=== PATIENT | female | born 1955 | race Caucasian/White ===

== ENCOUNTER → 2017-07-14 13:36 | Outpatient (CLI) | payer BC, OTHER, SELFPAY ==
--- NOTE | 2017-07-14 | XR_ITS ---
XR chest 2V HISTORY: ITS.REASON: HTN,SMOKER,PRE OP ORDERING PHYSICIAN: Alexy Hawkins MD PATIENT AGE: 62 years COMPARISON: 01/12/2014 FINDINGS: The cardiomediastinal silhouette and pulmonary vascularity are within normal limits. Mild hyperinflation with mild perihilar bronchial thickening which may be seen with smoking related lung disease. No lobar consolidation or collapse. Degenerative change thoracic spine. IMPRESSION: 1. Hyperinflation with bronchial thickening consistent with chronic bronchitis/smoking-related lung disease. No significant change from 01/12/2014 2. Otherwise negative with no acute finding
[2017-07-14 14:42] LABS: Basophils # 0.1 K/mm3 (0-0.2); Basophils % 0.7 % (0.1-2.0); Eosinophils # 0.2 K/mm3 (0.0-0.4); Eosinophils % 2.2 % (0.1-12.0); Hematocrit 45.8 % (37.0-47.0); Hemoglobin 15.1 g/dL (12.2-16.2); Lymphocytes # 2.2 K/mm3 (0.7-4.5); Lymphocytes % 28.9 K/mm3 (10-50); Mean Corpuscular Hemoglobin 31.8 pg (27.0-31.2); Mean Corpuscular Volume 96.5 fl (81-99); Mean Platelet Volume 7.4 fl (7.4-10.4); Monocytes # 0.3 K/mm3 (0.1-1.0); Monocytes % 4.4 % (1.7-9.3); Neutrophils # 4.9 K/mm3 (1.8-7.8); Neutrophils % 63.8 % (37.0-80.0); Platelet Count 284 K/mm3 (142-424); Red Blood Count 4.75 M/mm3 (4.20-5.40); Red Cell Distribution Width 13.3 % (11.5-17.5); White Blood Count 7.7 K/mm3 (4.8-10.8)
[2017-07-14 15:38] LABS: Anion Gap 8.1 mEq/L (5-15); Blood Urea Nitrogen 10 mg/dL (7-18); Carbon Dioxide 31 mmol/L (21.0-32.0); Chloride 104 mmol/L (98-107); Creatinine,Serum 0.87 mg/dL (0.55-1.02); Estimated Glomerular Filt Rate > 60 ml/min (>60); GFR (African American) > 60 ML/MIN (>60); Glucose 100 mg/dL (74-106); Potassium 4.1 mmoL/L (3.5-5.1); Sodium 139 mmol/L (136-145)
== END ==
PROVIDERS: PCP Internal Medicine; Visit Provider Orthopaedic Surgery
DX: M17.11 Unilateral primary osteoarthritis, right knee (principal); Z01.818 Encounter for other preprocedural examination
CPT/HCPCS: 36415; 71046; 80048; 85025; 93005

== ENCOUNTER → 2017-08-26 11:13 | Outpatient (CLI) | payer BC, OTHER, SELFPAY ==
[2017-08-26 11:39] LABS: Basophils % 0.7 % (0.1-2.0); Eosinophils # 0.2 K/mm3 (0.0-0.4); Eosinophils % 3.6 % (0.1-12.0); Hematocrit 48.1 % (37.0-47.0); Hemoglobin 16.3 g/dL (12.2-16.2); Mean Corpuscular HGB Conc 33.8 g/dL (31.8-35.4); Mean Corpuscular Hemoglobin 32.3 pg (27.0-31.2); Mean Corpuscular Volume 95.7 fl (81-99); Monocytes # 0.4 K/mm3 (0.1-1.0); Monocytes % 5.7 % (1.7-9.3); Neutrophils # 3.7 K/mm3 (1.8-7.8); Platelet Count 260 K/mm3 (142-424); Red Blood Count 5.03 M/mm3 (4.20-5.40); Red Cell Distribution Width 12.9 % (11.5-17.5); White Blood Count 6.3 K/mm3 (4.8-10.8)
[2017-08-26 12:11] LABS: Anion Gap 12.8 mEq/L (5-15); Blood Urea Nitrogen 13 mg/dL (7-18); Carbon Dioxide 28 mmol/L (21.0-32.0); Chloride 102 mmol/L (98-107); Creatinine,Serum 0.96 mg/dL (0.55-1.02); Estimated Glomerular Filt Rate 59 ml/min (>60); GFR (African American) 71 ML/MIN (>60); Glucose 110 mg/dL (74-106); Potassium 3.8 mmoL/L (3.5-5.1); Sodium 139 mmol/L (136-145)
== END ==
PROVIDERS: PCP Internal Medicine; Visit Provider Orthopaedic Surgery
DX: Z01.818 Encounter for other preprocedural examination (principal); M17.11 Unilateral primary osteoarthritis, right knee
CPT/HCPCS: 36415; 80048; 85025; 86850

== ENCOUNTER 2017-08-28 06:05 | Inpatient (IN) | payer BC, OTHER, SELFPAY ==
[2017-08-22 15:49] VITALS: BMI 33.8
[2017-08-28] VITALS (27 sets, daily range): BP systolic 102–147; BP diastolic 50–85; PULSE 91–110; RESP 12–21; TEMP 36.4–43; O2SAT 91–98; BMI 34.9
--- NOTE | 2017-08-28 07:10 | P.PN_ITS ---
[facility] Anesthesia Checklist - Patient Identification Patient Identification: Arm Band - Structural Data Admitted From: Home Planned Operative Procedure/s: right tka Consent for Planned Operative Procedure(s) Verified: Yes Verified Documents: Surgical Consent, History and Physical - NPO Status Verified Time NPO: 00:00 - Additional verifications Anesthesia Reactions: No - Airway Assessment C-Spine Mobility Assessed: Yes (mp2) TMJ Mobility Assessed: Yes - Neurological Assessment Level of Consciousness: Awake, Alert - Anesthesia Plan Anesthesia Risk discussed: Yes Anesthesia Plan: Verified ASA Class: II Anesthesia Type: General - Preoperative Comments Pre-Operative Comments: fem/sciatic block [facility] Anesthesia HX I have reviewed the patient's past medical history: Yes Medical History: Reports:: Asthma, Cancer (pseudotumor l eye- radiation) Denies:: Diabetes Mellitus Type 1, Diabetes Mellitus Type 2, MRSA, Seizures Amputation: No Fractures: No *Family Hx:: No significant family history
--- NOTE | 2017-08-28 07:21 | XR_ITS ---
XR knee RT 2V HISTORY: Follow-up knee replacement ITS.REASON: post op ORDERING PHYSICIAN: Alexy Hawkins MD PATIENT AGE: 62 years COMPARISON: 11/01/2013 FINDINGS: Status post total knee arthroplasty with good alignment of the prosthesis. No acute fracture or dislocation. There is moderate amount of postsurgical gas. On the lateral view there is a lucency overlying the distal aspect of the femur at the metaphyseal region possibly related to overlying gas. Consider follow-up exam for confirmation. IMPRESSION: 1. Status post total knee replacement with good alignment. 2. Postsurgical gas. Indeterminate 7 mm lucency overlies the distal femur. Consider follow-up convalescent exam for better evaluation
--- NOTE | 2017-08-28 10:50 | P.PN_ITS ---
[facility] Anesthesia Record Part I Intake, IV Amount: 2,100 Estimated blood loss (mL): 100 Urine output (mL): 300 Blood Pressure: 145/61 SaO2: 91 Pulse Rate: 108 Respiratory Rate: 12 Temperature: 99.1 F Patient is:: Awake, Stable Stable to PACU at:: 10:45
--- NOTE | 2017-08-28 10:50 | HMH.ANESII ---
[facility] Anesthesia Record Part II Discharge Time: 11:15 Destination: floor PACU nurse assessment reviewed?: Yes Patient Condition:: Good Anesthesia Complications:: None
[2017-08-28 12:43] LABS: Appearance,Urine/Cath CLEAR (Clear); Bilirubin,Cath Negative (Negative); Blood, Urine/Cath Negative (Negative); Color,Urine/Cath YELLOW (Yellow); Glucose,Urine/Cath (UA) Negative (Negative); Ketones,Urine/Cath Negative (Negative); Leukocyte Esterase,Cath Negative (Negative); Microscopic,Cath URINE MICROSCOPIC (MICROSCOPIC); Nitrate,Cath Negative (Negative); PH,Urine/Cath 5.5 (5.0-8.5); Protein,Urine/Cath Negative (Negative); Specific Gravity, Urine/Cath 1.015 (1.005-1.030); Urobilinogen,Cath 0.2 EU/dl (0.2)
[2017-08-28 13:30] LABS: Squamous Epithelial Ur./Cath Occasional #/hpf (0-5)
--- NOTE | 2017-08-28 16:20 | HMH.ORTHPN ---
Subjective Date: 08/28/17 Time: 16:20 Principal diagnosis: Knee osteoarthritis, right... Status post TKA Interval history: Postop Visit Patient is awake alert no apparent distress. Denies pain. Pedal pulses intact. Insensate right lower extremity secondary to her block. Postoperative x-rays satisfactory. Dressing clean and dry. No evidence complications. Patient reports she has been up to a chair already. Impression: Status post right total knee arthroplasty this morning Plan--continue mobilization. I have called the nurses requested a place the 2 L per nasal cannula O2 on as ordered. This is to assist with oxygenation of the tissues as the patient is a smoker. Nicotine patch as needed. Continue antibiotics. Physical therapy tomorrow PN: Obj Ex Vital signs: Temp Pulse Resp BP Pulse Ox 98.1 F 95 H 18 111/63 93 L 08/28/17 15:15 08/28/17 15:15 08/28/17 15:15 08/28/17 15:15 08/28/17 15:15 - Urinary Catheter Management Travis Cath placed during this visit: yes Urethral indwelling: Yes Reason for continuing: Surgical procedure (The patient has a catheter as it is ordered by the attending physician) Insertion date: 08/28/17 Insertion time: 07:25
--- NOTE | 2017-08-28 16:29 | HMH.OPNOTE ---
Date of procedure: 08/28/17 Pre-op Diagnosis:: Right knee osteoarthritis Post-op diagnosis:: same Procedure performed:: Right total knee arthroplasty Surgeon:: Alexy Hawkins MD Airport Ramp Agent(s):: Dr. Moreno DISPLAY DECORATOR:: Other Anesthesia: GETA, regional Estimated blood loss (mL): 100 Operative findings:: Diffuse osteoarthritis as noted on x-rays. Bone quality satisfactory. Operative note:: The patient was taken to the operating room and placed in the supine position. The patient had received twice daily applications of Bactroban and had applied Hibiclens daily to the involved knee operative site for the 5 days prior to surgery. After appropriate identification, timeout verification, the involved right knee was prepped and draped in the usual sterile fashion. The entire operative team wore isolation suits. The operative site was sealed with Ioban. Preoperative antibiotics consisting of Ancef were given. A midline incision was made with a #10 blade and the tissue sharply dissected. A medial parapatellar incision was made sharply and electrocautery used to seal blood vessels. The patella was carefully everted and a rongeur used to remove osteophytes. The knee was gently flexed and we observe to ensure no disruption of the patella tendon at its insertion occurred. We remove the anterior portions of the medial and lateral menisci and the majority of the fat pad. The ACL was sacrificed. An entry drill was used to drill the cortex of the femur just medial to the insertion of the PCL and anterior by around 1 cm. This allowed entry into the femoral canal. We irrigated it and then placed the intramedullary alignment guide. We then pinned the distal cutting guide in position for a standard cut. Soft tissue retractors were placed and a [employer] oscillating precision saw used to remove the distal femur. We checked for trueness of the cut and then sized the femur at a size [5] for the [employer] system. We placed to drill holes and at 3? external rotation, checked Whitesides line and the epicondylar axis, and secured the 4-in-1 cutting block. Soft tissue retractors were placed in the anterior cut made followed by the posterior cut and the 2 chamfer cuts. Trueness of cut was confirmed and we placed the extra medullary guide for the tibia. This was placed in the distal aspect of the guide used to center on the distal tibia at approximately the level of the second ray. This alignment was confirmed by the surgeon, the employee relations assistant Surgeon, and even the production clerks supervisor. We measured off the more worn medial tibial plateau for a 3 mm resection. Using soft tissue guides, the oscillating precision saw was again utilized. We measured depth of cut and work to protect the PCL. The tibia was resected and sized at a size [4]. (We incurred tourniquet failure approximately this point in the case. Unknown to us at the time, and later discovered, the Velcro on the tourniquet had detached at the factory applied end, thus allowing failure. We simply deflated the tourniquet at this point and reinflated it prior to cementing.) We removed the posterior aspects of the medial and lateral menisci. We did note that the popliteus tendon had incurred a partial laceration likely from an osteotome as the tibial plateau was resected. Its overall integrity remained stable and no loss of lateral stabilization incurred. We trialed with the appropriate femoral component and the tibia as well. We used the patella clamp and milled for the patella medializing this. The femoral component a bit lateralized to allow patella tracking. We trialed the components and found the patella to track nicely without any tendency to dislocate. There was no lift off of the tibial tray thus indicating the PCL tensioning was appropriate. Knee flexion was to approximately 120 degrees and extension was to approximately 3?. We removed the components and used a [employer] elevator to loosen th
--- NOTE | 2017-08-28 16:59 | P.OP_ITS ---
Date of procedure: 08/28/17 Pre-op Diagnosis:: Right knee osteoarthritis Post-op diagnosis:: same Procedure performed:: Right total knee arthroplasty Surgeon:: Alexy Hawkins MD Software Development Coordinator(s):: Dr. Moreno FIRE SPRINKLER INSTALLER:: Other Anesthesia: GETA, regional Estimated blood loss (mL): 100 Operative findings:: Diffuse osteoarthritis as noted on x-rays. Bone quality satisfactory. Operative note:: The patient was taken to the operating room and placed in the supine position. The patient had received twice daily applications of Bactroban and had applied Hibiclens daily to the involved knee operative site for the 5 days prior to surgery. After appropriate identification, timeout verification, the involved right knee was prepped and draped in the usual sterile fashion. The entire operative team wore isolation suits. The operative site was sealed with Ioban. Preoperative antibiotics consisting of Ancef were given. A midline incision was made with a #10 blade and the tissue sharply dissected. A medial parapatellar incision was made sharply and electrocautery used to seal blood vessels. The patella was carefully everted and a rongeur used to remove osteophytes. The knee was gently flexed and we observe to ensure no disruption of the patella tendon at its insertion occurred. We remove the anterior portions of the medial and lateral menisci and the majority of the fat pad. The ACL was sacrificed. An entry drill was used to drill the cortex of the femur just medial to the insertion of the PCL and anterior by around 1 cm. This allowed entry into the femoral canal. We irrigated it and then placed the intramedullary alignment guide. We then pinned the distal cutting guide in position for a standard cut. Soft tissue retractors were placed and a [employer] oscillating precision saw used to remove the distal femur. We checked for trueness of the cut and then sized the femur at a size [5] for the [employer] system. We placed to drill holes and at 3? external rotation, checked Whitesides line and the epicondylar axis, and secured the 4-in-1 cutting block. Soft tissue retractors were placed in the anterior cut made followed by the posterior cut and the 2 chamfer cuts. Trueness of cut was confirmed and we placed the extra medullary guide for the tibia. This was placed in the distal aspect of the guide used to center on the distal tibia at approximately the level of the second ray. This alignment was confirmed by the surgeon, the stores assistant Surgeon , and even the video production intern. We measured off the more worn medial tibial plateau for a 3 mm resection. Using soft tissue guides, the oscillating precision saw was again utilized. We measured depth of cut and work to protect the PCL. The tibia was resected and sized at a size [4]. (We incurred tourniquet failure approximately this point in the case. Unknown to us at the time, and later discovered, the Velcro on the tourniquet had detached at the factory applied end, thus allowing failure. We simply deflated the tourniquet at this point and reinflated it prior to cementing.) We removed the posterior aspects of the medial and lateral menisci. We did note that the popliteus tendon had incurred a partial laceration likely from an osteotome as the tibial plateau was resected. Its overall integrity remained stable and no loss of lateral stabilization incurred. We trialed with the appropriate femoral component and the tibia as well. We used the patella clamp and milled for the patella medializing this. The femoral component a bit lateralized to allow patella tracking. We trialed the components and found the patella to track nicely without any tendency to dislo
--- NOTE | 2017-08-28 18:02 | PC.NURSE ---
PT IS RESTING IN BED WITH FAMILY IN THE ROOM, PT STATES THE TABLET TESTER PUMP IS CONTROLLING PAIN WELL. PT'S RT HEEL IS ELEVATED ON PILLOWS WITH ICE PACK TO THE KNEE. DRESSING C/D/I. O2 SATURATION IS 95% ON 2 L NC. LUNG SOUNDS CLEAR. PT TOLERATED SITTING UP IN THE CHAIR FOR AN HOUR THIS SHIFT. EATING AND DRINKING WELL. WILL CONTINUE TO MONITOR.
--- NOTE | 2017-08-28 19:12 | PC.NURSE ---
PT HAD A TOTAL OF 8 MG OF MORPHINE T/O THE SHIFT
--- NOTE | 2017-08-28 21:38 | PC.NURSE ---
PT FULL CODE, REPORT FROM ELÍAS
--- NOTE | 2017-08-28 23:15 | PC.NURSE ---
DR CARDOZA CALLED TO CHECK ON PT. UPDATE GIVEN. STATED MAY GIVE PT A 2MG IV MORPHINE BOLUS (BOOST) DOSE X1 IF NEEDED FOR MODERATE BREAKTHROUGH PAIN. ALSO, STATED PT IS ON LOW DOSE MC KAY STITCHER, MAY INCREASE MC KAY STITCHER TO 1MG MORPHINE INSTEAD OF CURRENT 0.5MG DOSE IF REQUIRED. STATED USE NURSING JUDGEMENT. ENCOURAGE 2LNC WHEN NOT ON CPAP. STATES HELPS IN WOUND HEALING PT IS A SMOKER. WILL PASS ON IN REPORT TO FOLLOWING NURSE.
[2017-08-29] VITALS (10 sets, daily range): BP systolic 114–146; BP diastolic 57–70; PULSE 86–101; RESP 18–20; TEMP 36.7–37.1; O2SAT 91–98
--- NOTE | 2017-08-29 00:58 | PC.NURSE ---
PT RESTING, NO C/O PAIN AT THIS TIME. STABLE. WILL CONTINUE TO MONITOR. REPORT TO ONCOMING NURSE.
--- NOTE | 2017-08-29 04:30 | PC.NURSE ---
12 MG CLEARED FROM FISH ROD MAKER PUMP AT THIS TIME.
[2017-08-29 06:49] LABS: Basophils % 0.2 % (0.1-2.0); Eosinophils % 0.3 % (0.1-12.0); Hematocrit 34.6 % (37.0-47.0); Hemoglobin 11.6 g/dL (12.2-16.2); Lymphocytes # 1.8 K/mm3 (0.7-4.5); Lymphocytes % 14.9 K/mm3 (10-50); Mean Corpuscular HGB Conc 33.5 g/dL (31.8-35.4); Mean Corpuscular Hemoglobin 31.5 pg (27.0-31.2); Mean Platelet Volume 7.1 fl (7.4-10.4); Monocytes # 0.9 K/mm3 (0.1-1.0); Monocytes % 7.4 % (1.7-9.3); Neutrophils # 9.5 K/mm3 (1.8-7.8); Neutrophils % 77.3 % (37.0-80.0); Platelet Count 228 K/mm3 (142-424); Red Blood Count 3.68 M/mm3 (4.20-5.40); Red Cell Distribution Width 12.9 % (11.5-17.5); White Blood Count 12.3 K/mm3 (4.8-10.8)
--- NOTE | 2017-08-29 06:54 | PC.NURSE ---
C/O PAIN IN R KNEE AROUND 0330, ADDITIONAL PAIN MEDICATION ADMINISTERED INCLUDING ASSISTANT BASKETBALL COACH. ONE TAB OF NORCO WAS ADMINISTERED FOLLOWING COMPLAINT. PT THEN REQUESTED AN ADDITIONAL NORCO AROUND 30 MIN FOLLOWING ADMINISTRATION OF FIRST TAB, RN ADMINISTERED ADDITIONAL TAB UPON REQUEST. RN INSTRUCTED PT TO NOTIFY STAFF IF PAIN WAS UNRELIEVED. NO REASSESSMENT PT STATED I AM FINE. MY PAIN IS BETTER. ON RN LAST ROUND, PT STATED I AM STARTING TO FEEL ACHY ON MY R KNEE. IT IS NOT TERRIBLE BUT IT'S ENOUGH TO WHERE I CAN'T GO TO SLEEP. RN INCREASED ASSISTANT BASKETBALL COACH DOSE TO 1 MG FROM THE ORIGINAL 0.[address] BRAN'S TELEPHONE ORDER TO PREVIOUS RN. INSTRUCTED PT TO NOTIFY STAFF IF PAIN IS UNRELIEVED. VSS. WILL CONTINUE TO MONITOR.
[2017-08-29 06:56] LABS: Anion Gap 10.8 mEq/L (5-15); Blood Urea Nitrogen 11 mg/dL (7-18); Carbon Dioxide 28 mmol/L (21.0-32.0); Chloride 100 mmol/L (98-107); Creatinine Clearance Estimated 78 mL/min (0-300); Creatinine,Serum 0.86 mg/dL (0.55-1.02); Estimated Glomerular Filt Rate 66 ml/min (>60); GFR (African American) 80 ML/MIN (>60); Glucose 139 mg/dL (74-106); Potassium 3.8 mmoL/L (3.5-5.1); Sodium 135 mmol/L (136-145)
--- NOTE | 2017-08-29 10:48 | HMH.PTEV ---
Physical Therapy Evaluation Rehab PT IP Evaluation Start: 08/28/17 07:30 Freq: ONCE Status: Complete Protocol: Document 08/28/17 17:38 NIKOLAY (Rec: 08/28/17 17:41 [email or web address] [id number]) Subjective/History History History This si the initial Physical Therapy evaluation for vero Adams. Pt had R TKA Subjective Subjective c/o no feeling in RLE 2nd to nerve block Rehab PT IP Eval Objective Appearance Patient Behavior Appropriate Cooperative Patient Orientation Person Place Time Name Age Birthday Day of Month Day of Week Month Year Patient Baseline Difficulty following instructions none Speech Pattern Clear Ambulation Patient Able to Ambulate Yes Ambulation Observation IP General Gait Pattern Observation Antalgic Gait Decrease Weight Bear (R) Ambulation Distance (feet) 2 Ambulation Assistive Device Rolling Walker Balance Ability to Arise Able, uses arms to help Sitting Balance Steady, safe Standing Balance Steady, wide stance Dynamic Sitting Balance Ability Normal Dynamic Standing Balance Ability Poor Transfers Bed Transfer Ability Supervision/Stand by Chair Transfer Ability Moderate x 1 (50% assist) Sit to Stand Bed Transfer Ability Moderate x 1 (50% assist) Sit to Stand Chair Transfer Ability Moderate x 1 (50% assist) ROM RLE PT ROM Status ABN Abnormal ROM Comment SEvere limitiation Rehab PT IP prob,goals,plan Problems Date of Evaluation: 08/28/17 PT IP Problems Transfers Gait Self care Rehab Potential Rehab Potential Good Equipment Needs Assistive Devices Rolling / Wheeled Walker Plan PT Intervention Plan Bed Mobility Transfers Gait Balance Self care Safety Therapeutic Exercise PT Plan Frequency BID Duration LOS Discharge Goals Bed Transfer Ability Supervision/Stand by Sit to Stand Chair Transfer Ability Cont
--- NOTE | 2017-08-29 15:44 | P.CONPHA_ITS ---
[facility] Pharmacy VTE Monitoring - Patient Demographics Admission date: 08/28/17 Report Date: 08/29/17 Time: 15:43 Allergies/Adverse Reactions: Patient Allergies INGREDIENT: NO KNOWN - NO KNOWN DRUG ALLERGY Allergy (Unknown, Uncoded 08/17/17 14:25) Height: 1.57 m Weight: 86.721 kg - VTE Risk Labs: VTE Related Lab Results Hgb 11.6 g/dL (12.2-16.2) L 08/29/17 06:30 Hct 34.6 % (37.0-47.0) L 08/29/17 06:30 Plt Count 228 K/mm3 (142-424) 08/29/17 06:30 BUN 11 mg/dL (7-18) 08/29/17 06:30 Creatinine 0.86 mg/dL (0.55-1.02) 08/29/17 06:30 Estimated Creat Clear 78 mL/min (0-300) 08/29/17 06:30 VTE Score: 4 VTE Risk Level: Low Risk - Prophylaxis VTE Prophylaxis Ordered?: Yes Types of VTE Prophylaxis: IPCS Knee High Location of Applied Device: Bilateral Lower Extremeties
--- NOTE | 2017-08-29 18:00 | P.PN_ITS ---
Subjective Date: 08/29/17 Time: 14:00 Principal diagnosis: Knee osteoarthritis, right... Status post TKA Interval history: Postop day #1 status post right total knee arthroplasty. Vital signs are stable patient is afebrile. Not wearing her oxygen. This is been discussed with nursing staff. Patient states she is in pain last night as her nerve block has worn off. She presses her MARKET RESEARCH ANALYST occasionally but not reliably. Has recently received Lortab 5/325 as well. No ketorolac given yet. Hematocrit 34%. Glucose elevated. Dressing clean and dry. No evidence complications. PN: Obj Ex Vital signs: Temp Pulse Resp BP Pulse Ox 98.0 F 101 H 20 146/65 91 L 08/29/17 16:00 08/29/17 16:00 08/29/17 13:53 08/29/17 16:00 08/29/17 16:00 Narrative: No evidence DVT or other complications at this stage. We will plan on continuing physical therapy with discharge to rehabilitation center possibly Monday or . Plan Travis catheter removal tonight. May use ketorolac as needed for pain as well. I will be out of town until the evening of the . Dr. Moreno has been kind enough to see the patient during my absence. - Urinary Catheter Management Travis Cath placed during this visit: yes Urethral indwelling: Yes Reason for continuing: Decision to DC catheter Insertion date: 08/28/17 Insertion time: 07:25
--- NOTE | 2017-08-29 19:41 | PC.NURSE ---
PATIENT HAS BEEN UP TO THE CHAIR TWICE TODAY. FAMILY AT BEDSIDE. LERNER CATH REMOVED. NO DISTRESS NOTED.
[2017-08-30] VITALS (12 sets, daily range): BP systolic 104–153; BP diastolic 52–73; PULSE 71–106; RESP 18–20; TEMP 36.2–37.2; O2SAT 89–97
--- NOTE | 2017-08-30 04:25 | PC.NURSE ---
Pt has rested well this shift, with mild c/o pain, but relieved by ANESTHESIA TECHNICIAN. Pt has been up to BSC multiple times this shift with sufficient UOP, pt is up x1 assist and gets up well with walker. Ice applied to rt knee, tibial, femoral, and pedal pulses palpable to BLE. Dressing to rt knee CDI, unable to visualize incision, no s/s of infection or compartment syndrome noted. Pt elevate rt leg on pillow per MD order. Tolerating 2L O2 NC. VSS. Lung sounds clear t/o ascultation, pt educated on use of incentive spriometer, states she is using while awake. BS hypoactive in all qauds. No acute distress noted. Will continue to monitor.
--- NOTE | 2017-08-30 06:44 | PC.NURSE ---
42.2 cleared from MACHINE TOOL MECHANIC
--- NOTE | 2017-08-30 07:41 | PC.NURSE ---
report given to oskar savage rn
--- NOTE | 2017-08-30 07:48 | SW/DCPLANNER ---
WENT IN TO SEE THIS PATIENT REGARDING HER DISCHARGE PLANS: PATIENT STATED SHE WANTS TO GO HOME, SHE SAID HER AND MOTHER WILL BE THERE TO CARE FOR HER... SHE EVEN SUGGESTED SHE MIGHT COME BACK TO [facility] FOR OUT PATIENT REHAB SERVICES...I ASKED HER IF SHE THOUGHT SHE WOULD GET IN AN OUT OF A CAR AND SHE DIDN'T THINK SO.. I SUGGESTED HOME HEALTH SINCE SHE IS SO ACTIVE AND WILL DO WELL AT HOME.. I OFFERED TO ENTERTAIN A REHAB FACILITY BUT SHE DECLINED.. WILL WAIT UNTIL DR BRAN COMES IN TO SEE PATIENT AND ALONG WITH THERAPY SUGGESTIONS WE WILL MOVE FORWARD WITH A DISCHARGE PLAN....
--- NOTE | 2017-08-30 11:48 | P.PN_ITS ---
Subjective Date: 08/30/17 Time: 11:00 Principal diagnosis: Knee osteoarthritis, right... Status post TKA Interval history: Patient of Dr. Hawkins seen on the floor as he is out of town. Patient is status post left total knee arthroplasty post op day #2. Patient is sitting up in a chair. Says she is doing well and reports no problems. Patient reports moderate knee pain and says it's well-controlled with medication. Patient still reports some paresthesias in the left foot from the nerve blocks. No history of any nausea or vomiting. No history of any cough, chest pain, shortness of breath or palpitations. Patient is eating and drinking well. Patient says she managed to walk well with the help of physical therapist using a walker. PN: Obj Ex Vital signs: Temp Pulse Resp BP Pulse Ox 97.1 F L 106 H 20 128/62 97 08/30/17 11:40 08/30/17 11:40 08/30/17 11:40 08/30/17 11:40 08/30/17 11:40 Narrative: Intake & Output 08/29/17 08/30/17 08/30/17 19:59 03:59 11:59 Intake Total 480 / 480 2130 / 2130 Output Total 676 / 676 300 / 300 1300 / 1300 Balance -196 / -196 -300 / -300 830 / 830 Weight 191 lb 3 oz Physical exam General appearance: alert, active, awake, no acute distress ENT: normal exam; mucous membranes moist Neck: Soft and supple, trachea midline, full range of movements Cardiovascular: regular rate & rhythm, S1-S2 heard, normal peripheral pulses Respiratory: clear to auscultation, normal breath sounds Abdomen: Soft and nontender, normal bowel sounds Neuro: alert, oriented x 3, manager application II-XII normal as tested, no deficits Psych: normal and appropriate mood/affect; communicates well Extremities: On examination of the right knee, the dressings are clean, dry and intact. I have changed the surgical dressings today and the incision looks clean and dry and healthy. No erythema or discharge noted. Knee range of motion is 10-70? of flexion. Distal pulses are 2+. Capillary refill is brisk. Patient has paresthesias over the right foot from the nerve blocks. Thigh and calf are soft and nontender. Quadriceps mechanism is clinically intact and is actively lalo. Patient is just about able to lift the leg off the chair. - Urinary Catheter Management Travis Cath placed during this visit: yes Urethral indwelling: No Insertion date: 08/28/17 Insertion time: 07:25 Progress Note: A&P (1) S/P total knee arthroplasty Status: Acute Assessment and plan: Status post RIGHT total knee arthroplasty, postoperative day #2, doing well I reviewed the findings and progress with the patient and her . Changed the dressings today and the surgical incision is clean, dry and healthy. Patient continue physical therapy and mobilization with the help of physical therapist. Discontinue IV fluids as eating and drinking well. Discontinue INTER COM INSTALLER and continue oral and IV as needed pain medication. Continue DVT prophylaxis. Care management consult regarding discharge planning. Current Visit: Yes
--- NOTE | 2017-08-30 15:09 | PC.NURSE ---
A&O x3. Lungs clear, bowel sounds active x4. O2 sats in 90's in RA. Pt weaned from O2 due to possibility of being dc'd tomorrow. Pt has been up to the chair and has ambulated in the herrera with use of walker and standby assist from PT. Dressing to RLE is c,d,& i. Distal pulses +2, cap refill <3sec. +1 edema to rle. SUB ACUTE CARE NURSE pump and fluids dc'd per MD order. Pt has tolerated well. Treated x1 w/toradol for pain. No other concerns at this time. Will continue to monitor.
--- NOTE | 2017-08-30 16:27 | SW/DCPLANNER ---
DURING PATIENT CARE PATIENT EXPRESSED SHE WANTS TO GO HOME: WAS AT BEDSIDE AND SAID IF HER INSURANCE WOULD ALLOW HER TO STAY IN THE ACUTE HOSPITAL A DAY OR TWO LONGER THAT WOULD BE GREAT AND IF NOT HOME HEALTH SERVICES WOULD BE GOOD.. THEY LIVE HERE IN [place] AND ONCE SHE IS ABLE TO COME BACK TO THE OUT PATIENT DEPT SHE WOULD [PREFER TO DO THAT ALSO... I BELIEVE SHE IS MOTIVATED TO GET BETTER AND WILL WORK TOWARD DOING SO...HOME HEALTH WILL BE SET UP FOR THIS PATIENT IF ORDERED BY MD...
--- NOTE | 2017-08-30 18:17 | PC.NURSE ---
Care management rounds: discussed pt needs after discharge and pt concerns
--- NOTE | 2017-08-30 18:57 | PC.NURSE ---
report to be given to Danuta Weldon RN
[2017-08-31] VITALS (7 sets, daily range): BP systolic 113–151; BP diastolic 61–80; PULSE 91–114; RESP 18–20; TEMP 36.8–38.2; O2SAT 92–97
--- NOTE | 2017-08-31 05:23 | PC.NURSE ---
Dr Moreno notified of patient increase in temp of 100.7 and no available medication for fever. Per MD order: Acetaminiphen 650mg Q4H PRN for fever Chest x-ray UA Read back and verified with
--- NOTE | 2017-08-31 05:26 | PC.NURSE ---
Pt has rested well this shift with pain being relieved by PRN pain medication. Pt spiked fever during the night (see previous nurse note) (alexis) notified, order PRN tylenol for fever, pt requested pain medication when she spiked a fever, administered 2 tab of lortab, on follow up temp. assessment was 99.4. Pt dressing CDI, no edema, or redness note to knee. Pt ambulates to BR with stand by assist and walker, pt does well. Pt continues to use ice packs to affected knee, elevates on pillow. Pt educated on use of incentive spirometer, states she is not using it like she should, pt educated on benefits of using and states she will try to use it more often. Pulse palpable and strong in BLE. A&Ox3. Diminished lung sounds during auscultation. BS active, denies BM but states she feels like she has the urge and is passing flatus. Tolerating RA. VSS. Family at bedside. No acute distress noted. Will continue to monitor.
--- NOTE | 2017-08-31 07:00 | XR_ITS ---
XR chest portable HISTORY: ITS.REASON: Fever ORDERING PHYSICIAN: Alexy Hawkins MD PATIENT AGE: 62 years COMPARISON: 07/14/2017 FINDINGS: The cardiomediastinal silhouette and pulmonary vascularity are within normal limits. The lungs are clear without infiltrates, suspicious nodules, or pleural effusions. No acute bony abnormalities. IMPRESSION: Negative chest, no acute finding
--- NOTE | 2017-08-31 07:21 | PC.NURSE ---
REPORT GIVEN TO Bear GILL W/C
--- NOTE | 2017-08-31 07:36 | PC.NURSE ---
Report given to Bear savage rn
[2017-08-31 08:29] LABS: Microscopic, Urine URINE MICROSCOPIC (MICROSCOPIC)
[2017-08-31 08:36] LABS: Appearance,Urine CLEAR (Clear); Bilirubin,Urine Negative (Negative); Blood, Urine 1+ (Negative); Color,Urine YELLOW (Yellow); Glucose,Urine (UA) Negative (Negative); Ketones,Urine Negative (Negative); Leukocyte Esterase,Urine Negative (Negative); Nitrate,Urine Negative (Negative); PH,Urine 6.5 (5.0-8.5); Protein,Urine Negative (Negative); Urobilinogen,Urine 0.2 EU/dl (0.2)
[2017-08-31 08:45] LABS: Bacteria,Urine Trace /lpf; RBC,Urine Occasional #/hpf (0-3)
[2017-08-31 10:36] LABS: Basophils % 0.3 % (0.1-2.0); Eosinophils # 0.2 K/mm3 (0.0-0.4); Eosinophils % 2.5 % (0.1-12.0); Hematocrit 33.8 % (37.0-47.0); Hemoglobin 11.4 g/dL (12.2-16.2); Lymphocytes # 1.4 K/mm3 (0.7-4.5); Lymphocytes % 15.5 K/mm3 (10-50); Mean Corpuscular HGB Conc 33.6 g/dL (31.8-35.4); Mean Corpuscular Hemoglobin 32.2 pg (27.0-31.2); Mean Platelet Volume 7.2 fl (7.4-10.4); Monocytes # 0.6 K/mm3 (0.1-1.0); Monocytes % 6.8 % (1.7-9.3); Neutrophils # 6.9 K/mm3 (1.8-7.8); Neutrophils % 74.9 % (37.0-80.0); Platelet Count 234 K/mm3 (142-424); Red Blood Count 3.52 M/mm3 (4.20-5.40); Red Cell Distribution Width 12.8 % (11.5-17.5); White Blood Count 9.2 K/mm3 (4.8-10.8)
--- NOTE | 2017-08-31 11:22 | PC.NURSE ---
Dr Moreno called to ask about pt, requested cbc be ordered.
--- NOTE | 2017-08-31 12:37 | HMH.ORTHPN ---
Subjective Date: 08/31/17 Time: 12:15 Principal diagnosis: Knee osteoarthritis, right... Status post TKA Interval history: Status post RIGHT total knee arthroplasty, postoperative day #3 Patient is sitting up in a chair. Says she is doing well and reports no problems. Patient reports moderate knee pain and says it's well-controlled with medication. She had a temperature spike of 100.5 earlier this morning. Says she is feeling normal now. No history of any nausea or vomiting. No history of any cough, chest pain, shortness of breath or palpitations. Patient is eating and drinking well. Patient says she managed to walk well with the help of physical therapist using a walker. PN: Obj Ex Vital signs: Temp Pulse Resp BP Pulse Ox 99.5 F 99 H 20 128/61 93 L 08/31/17 08:00 08/31/17 09:50 08/31/17 09:50 08/31/17 08:00 08/31/17 09:50 Narrative: Laboratory Results - last 24 hr 08/31/17 06:23: Urine Color Yellow, Urine Appearance Clear, Urine pH 6.5, Ur Specific Levels 1.010, Urine Protein Negative, Urine Glucose (UA) Negative, Urine Ketones Negative, Urine Blood 1+, Urine Nitrate Negative, Urine Bilirubin Negative, Urine Urobilinogen 0.2, Ur Leukocyte Esterase Negative, Urine RBC Occasional, Urine WBC None, Ur Squamous Epith Cells 5-10, Urine Bacteria Trace 08/31/17 10:26: WBC 9.2 D, RBC 3.52 L, Hgb 11.4 L, Hct 33.8 L, MCV 96.0, MCH 32.2 H, MCHC 33.6, RDW 12.8, Plt Count 234, MPV 7.2 L, Neut % (Auto) 74.9, Lymph % (Auto) 15.5, [place] % (Auto) 6.8, Eos % (Auto) 2.5, Baso % (Auto) 0.3, Neut # (Auto) 6.9, Lymph # (Auto) 1.4, [place] # (Auto) 0.6, Eos # (Auto) 0.2, Baso # (Auto) 0.0 Intake & Output 08/31/17 08/31/17 08/31/17 03:59 11:59 19:59 Intake Total 360 / 360 Balance 360 / 360 Intake: Intake, Oral Amount 360 / 360 Other: Number of Unmeasured Voids 1 Physical exam General appearance: alert, active, awake, no acute distress ENT: normal exam; mucous membranes moist Neck: Soft and supple, trachea midline, full range of movements Cardiovascular: regular rate & rhythm, S1-S2 heard, normal peripheral pulses Respiratory: clear to auscultation, normal breath sounds Abdomen: Soft and nontender, normal bowel sounds Neuro: alert, oriented x 3, waterproof bag sewer II-XII normal as tested, no deficits Psych: normal and appropriate mood/affect; communicates well Extremities: On examination of the right knee, the dressings are clean, dry and intact. Mild swelling and tenderness noted over the right knee. No erythema or discharge noted. Knee range of motion is 5-90? of flexion. Distal pulses are 2+. Mild edema of the right foot and ankle noted. Capillary refill is brisk. Sensation is intact to light touch throughout. Thigh and calf are soft and nontender. Quadriceps mechanism is clinically intact and the quadriceps is noted to be actively lalo. Patient is able to lift the leg off the chair. - Urinary Catheter Management Travis Cath placed during this visit: yes Urethral indwelling: No Insertion date: 08/28/17 Insertion time: 07:25 Progress Note: A&P (1) S/P total knee arthroplasty Start date: 08/28/17 Status: Acute Assessment and plan: Status post RIGHT total knee arthroplasty, postoperative day #3, doing well I reviewed the vital signs, labs, input output, medication and discussed with nursing staff. I also reviewed the findings and progress with the patient and her . She spiked temperature earlier in the morning which promptly responded to oral Tylenol. Her white cell count is normal and no evidence of any infective process found. Because of her temperature spike this morning I would like her to stay in the hospital for the next 24 hours for observation. Patient to continue physical therapy and mobilization with the help of physical therapist. Continue oral and IV as needed pain medication and as needed Tylenol. Continue DVT prophylaxis. Likely discharge tomorrow if no
--- NOTE | 2017-08-31 15:25 | PC.NURSE ---
Pt informed IV due to be changed per protocol. Pt states she would prefer to wait until tomorrow due to pending dc. Pt states if IV becomes painful, red, or zamora she will immediately inform staff. IV flushed w/o pain or difficulty. No s/s of infiltration or infection noted at site. Will continue to monitor.
--- NOTE | 2017-08-31 16:24 | PC.NURSE ---
Lungs clear, bowel sounds active x4. Pt has ambulated and the herrera with walker and standby assist from physical therapy. She has been up to the chair for the majority of the shift w/o incident. Treated x2 with prn lortab and toradol for pain of RLE with relief being reported. Family has been at bedside. Pt in good spirits. No complaints verbalized. Will continue to monitor.
--- NOTE | 2017-08-31 18:49 | PC.NURSE ---
Report to be given to Rosalva Chance RN
--- NOTE | 2017-09-01 03:46 | PC.NURSE ---
PATIENT SEEMS TO HAVE RESTED WELL SO FAR THIS SHIFT. SHE HAS C/O PAIN TO RIGHT KNEE X2, STATING THAT IT MAINLY HURTS ONLY WHEN SHE MOVES IT. PT HAS AMBULATED FREQUENTLY WITHIN ROOM AND IN HALLWAY WITH WALKER AND HAS DONE WELL. PATIENT IS CURRENTLY IN BED SLEEPING. NO OTHER PROBLEMS NOTED AT THIS TIME. VSS. WILL CONTINUE TO MONITOR. SAFETY MEASURES IN PLACE, CALL LIGHT IN REACH.
[2017-09-01 04:00] VITALS: BP 115/62; PULSE 94; RESP 18; TEMP 36.7; O2SAT 95
--- NOTE | 2017-09-01 07:12 | PC.NURSE ---
REPORT GIVEN TO Gen ANDERSON W/C
[2017-09-01 07:48] VITALS: BP 118/52; BP 130/58; PULSE 101; RESP 16; TEMP 37; O2SAT 93
--- NOTE | 2017-09-01 11:58 | SW/DCPLANNER ---
PATIENT IS DISCHARGING TO HOME AND WILL BE RETURNING BACK TO [facility] OUT PATIENT DEPT FOR PHYSICAL THERAPY PATIENT WILL HAVE AN APPT PRIOR TO HER DISCHARGE..
--- NOTE | 2017-09-01 13:48 | PC.NURSE ---
Pt has tolerated well this shift, PRN pain medication given PO x1 this shift and was effective. Pt ambulated in room and in herrera with walker and spouse at her side. Pt discharged home with outpatient physical therapy set up to begin on Monday. Pt given all paperwork/education/perscription prior to discharge. IV removed from right AC, catheter intact, pt tolerated well.
--- NOTE | 2017-09-01 14:22 | HMH.DCSUM ---
General - General Admission date: 08/28/17 Discharge date: 09/01/17 HPI HPI: Patient is a 62-year-old female with advanced degenerative joint disease of the right knee who is admitted to the hospital electively following an uncomplicated primary right total knee arthroplasty on 08/28/2017. She has not responded well to conservative options including NSAID, Tylenol, and interarticular injections for her knee osteoarthritis. Total knee arthroplasty is indicated to reduce the risk of falls, improve her pain and mobility and quality of life. The surgical and nonsurgical alternatives were discussed in detail with the patient as well as the risks and benefits of the surgery. Objective Vital signs: Temp Pulse Resp BP Pulse Ox 98.6 F 101 H 16 118/52 93 L 09/01/17 07:48 09/01/17 07:48 09/01/17 07:48 09/01/17 07:48 09/01/17 07:48 no acute distress, obese, cooperative - *Routine HEENT Exam Head: Present: normocephalic, atraumatic Eye: Present: EOMI, PERRL ENT: Present: mucous membranes moist - *Routine Neck Exam Present: supple, full ROM, trachea midline - *Routine Respiratory Exam Present: CTA bilaterally - *Routine Cardiovascular Exam Present: RRR, Normal S1, Normal S2 - *Routine Abdominal Exam Present: soft, normoactive bowel sounds - *Routine Extremities Exam Present: pulses intact, normal capillary refill Comments: On examination of the right knee, the dressings are clean, dry and intact. Mild swelling and tenderness noted over the right knee. No erythema or discharge noted. Knee range of motion is 5-95? of flexion. Distal pulses are 2+. Mild edema of the right foot and ankle noted. Capillary refill is brisk. Sensation is intact to light touch throughout. Thigh and calf are soft and nontender. Quadriceps mechanism is clinically intact and the quadriceps is noted to be actively lalo. Patient is able to actively straight leg raise. - *Routine Skin Exam Present: intact, normal turgor - *Routine Neurological Exam Present: alert, oriented X3, CN II-XII intact, moving all extremities, vision grossly intact, hearing grossly intact, normal speech - Routine Psychiatric Exam Present: normal affect, normal thought process, cooperative, good insight, good judgment Hospital Course Hospital Course: Patient underwent an uncomplicated straightforward primary right total knee arthroplasty on 08/28/2017. Following surgery patient progressed well without any complications. Her postoperative check x-ray was satisfactory with good alignment and fixation of the components. On postoperative day 3 she spiked a 100.7 temperature but appropriate screening revealed no infective focus. She responded well to symptomatic treatment and has been apyrexial for more than 24 hours prior to discharge. She progressed rapidly with physical therapy and was able to mobilize using a walker. At the time of discharge she has regained good quadriceps control and is able to actively straight leg raise. Her pain is well controlled with as needed oral Hydrocodone. The dressings were changed on the second postoperative day and also at the time of discharge and the wound is healthy and healing well. No signs of any erythema, induration or discharge. Patient was started on Aspirin 325 mg daily for DVT for prophylaxis after surgery. Her neurovascular status in both lower extremities is intact. Pedal pulses 2+ bilaterally and fully sensate distally. No clinical evidence of DVT noted. Patient was cleared for discharge by physical therapy. On the day of discharge, the wound is clean and dry. The patient's vital signs have been stable throughout and she is afebrile at the time of discharge. She is being discharged home with outpatient physical therapy. Condition at discharge: improved and stable. Treatments and Procedures: Total knee arthroplasty, right knee; date of surgery 08/28/2017. DS: Diagnosis - Discharge Diagnosis (1) S/P to
== END 2017-09-01 13:51 | disposition home or self-care (01) | DRG 470 ==
PROVIDERS: Orthopaedic Surgery; Admitting Provider Orthopaedic Surgery; Family Provider Internal Medicine; PCP Internal Medicine; Visit Provider Orthopaedic Surgery
PROC: 0SRC0J9 Replacement of Right Knee Joint with Synthetic Substitute, Cemented, Open Approach (ICD-10-PCS; CPT 27447; principal; 2017-08-28 07:30)
DX: M17.11 Unilateral primary osteoarthritis, right knee (principal)
CPT/HCPCS: 27447; 36415; 71045; 73560; 80048; 81001; 85025; 94640; 94760; 94761; 96374; 97116; 97161; 97530; C1713; C1765; C1776; J0131; J2405; J2710

== ENCOUNTER → 2017-09-26 14:22 | Outpatient (CLI) | payer BC, OTHER, SELFPAY ==
--- NOTE | 2017-09-26 14:25 | XR_ITS ---
XR knee RT 2V HISTORY: ITS.REASON: AP and LATERAL views post op RT TKA ORDERING PHYSICIAN: Alexy Hawkins MD PATIENT AGE: 62 years COMPARISON: 08/28/2017 FINDINGS: AP lateral views the right knee show good alignment of the total knee prosthesis. No evidence of complications. IMPRESSION: Good alignment status post total knee arthroplasty
== END ==
PROVIDERS: PCP Internal Medicine; Visit Provider Orthopaedic Surgery
DX: Z96.651 Presence of right artificial knee joint (principal)
CPT/HCPCS: 73560

== ENCOUNTER 2017-09-27 11:00 | Outpatient (RCR) | payer BC, OTHER, SELFPAY ==
--- NOTE | 2017-09-04 15:31 | HMH.PTOPEV ---
Rehab Outpatient Evaluation Rehab OP Evaluation Start: 09/04/17 15:24 Freq: Status: Active Protocol: Document 09/04/17 15:24 CHARLES (Rec: 09/04/17 15:31 CHARLES [id number]) Electronically Signed By Kehinde Reardon, PT 09/04/17 15:24 Outpatient Therapy Subjective History Subjective History Pt presents s/p R TKA on . Pt reports 'I'm doing pretty well I think'. Pt reports some residual swelling , stiffness, pain, and weakness since sx., but is able to tolerate full wt. bearing activities. Chief Complaint Pain Stiff Swelling Weakness Symptom Type Ache Sharp Dull Symptoms Relieved By Rest/Positioning Ice Symptoms Aggravated By Standing Physical Activity Walking Prior Functional Limitations None Current Functional Limitations Housework Standing Squatting Walking Stairs Symptom Description Constant but Variable Level of pain today (0-10) 4 Pain scale - at its best (0-10) 4 Pain scale - at its worst (0-10) 8 Hip/Knee Eval Gait Observation General Gait Pattern Observation Antalgic Gait Assistive Device Assistive Devices Rolling / Wheeled Walker Palpation Tenderness right Knee Palpation Finding Tenderness Knee Palpation Overall Comment 3/4 MMT left Hip Flexion Strength Grade 5 Normal Hip Abduction Strength Grade 4 Good Hip Adduction Strength Grade 4 Good Hip Extension Strength Grade 4 Good Knee Extension Strength Grade 5 Normal Knee Flexion Strength Grade 5 Normal right Hip Flexion Strength Grade 4- Good- Hip Abduction Strength Grade 3+ Fair+ Hip Adduction Strength Grade 3+ Fair+ Hip Extension Strength Grade 3+ Fair+ Knee Extension Strength Grade 4- Good- Knee Flexion Strength Grade 4- Good- ROM left Knee Flexion Active Range of Motion ( 0-108 degrees) right Knee Flexion Active Range of Motion ( 8-80 degrees) Outpatient Therapy Assessment Impairments Problems/Impairmments Palpation Tenderness Impaired Range of Motion I
== END 2017-09-27 11:01 | disposition home or self-care (01) ==
LOC: PT 11:00
PROVIDERS: Family Provider Internal Medicine; PCP Internal Medicine; Visit Provider Orthopaedic Surgery
DX: Z96.651 Presence of right artificial knee joint (principal)
CPT/HCPCS: 97014; 97016; 97110; 97140; G0283

== ENCOUNTER → 2017-11-02 12:50 | Outpatient (CLI) | payer BC, OTHER, SELFPAY ==
--- NOTE | 2017-11-02 12:54 | XR_ITS ---
XR knee RT 2V HISTORY: Follow-up total knee replacement ITS.REASON: S/P RT TKA ORDERING PHYSICIAN: Alexy Hawkins MD PATIENT AGE: 62 years COMPARISON: 09/26/2017 FINDINGS: Status post total knee arthroplasty. There is good alignment. No orthopedic complications apparent. There remains increased density in the suprapatellar region which may be due to knee joint effusion. IMPRESSION: Good alignment status post total knee replacement.
== END ==
PROVIDERS: PCP Internal Medicine; Visit Provider Orthopaedic Surgery
DX: Z96.651 Presence of right artificial knee joint (principal)
CPT/HCPCS: 73560

== ENCOUNTER → 2017-11-06 15:01 | Outpatient (CLI) | payer BC, OTHER, SELFPAY ==
[2017-11-06 15:57] LABS: Basophils # 0.1 K/mm3 (0-0.2); Basophils % 0.5 % (0.1-2.0); Eosinophils # 0.2 K/mm3 (0.0-0.4); Eosinophils % 2.1 % (0.1-12.0); Hematocrit 46.6 % (37.0-47.0); Hemoglobin 15.5 g/dL (12.2-16.2); Lymphocytes # 2.2 K/mm3 (0.7-4.5); Lymphocytes % 25.1 K/mm3 (10-50); Mean Corpuscular HGB Conc 33.2 g/dL (31.8-35.4); Mean Corpuscular Hemoglobin 31.8 pg (27.0-31.2); Mean Corpuscular Volume 95.8 fl (81-99); Mean Platelet Volume 7.1 fl (7.4-10.4); Monocytes # 0.6 K/mm3 (0.1-1.0); Monocytes % 6.5 % (1.7-9.3); Neutrophils # 5.8 K/mm3 (1.8-7.8); Neutrophils % 65.8 % (37.0-80.0); Platelet Count 355 K/mm3 (142-424); Red Blood Count 4.86 M/mm3 (4.20-5.40); Red Cell Distribution Width 13.5 % (11.5-17.5); White Blood Count 8.8 K/mm3 (4.8-10.8)
[2017-11-06 16:54] LABS: Anion Gap 13.9 mEq/L (5-15); Blood Urea Nitrogen 11 mg/dL (7-18); Carbon Dioxide 28 mmol/L (21.0-32.0); Chloride 101 mmol/L (98-107); Creatinine,Serum 0.85 mg/dL (0.55-1.02); Estimated Glomerular Filt Rate 67 ml/min (>60); GFR (African American) 81 ML/MIN (>60); Glucose 132 mg/dL (74-106); Potassium 3.9 mmoL/L (3.5-5.1); Sodium 139 mmol/L (136-145)
== END ==
PROVIDERS: Family Provider Internal Medicine; PCP Internal Medicine; Visit Provider Orthopaedic Surgery
DX: Z01.818 Encounter for other preprocedural examination (principal); T84.82XA Fibrosis due to internal orthopedic prosthetic devices, implants and grafts, initial encounter; M24.661 Ankylosis, right knee
CPT/HCPCS: 36415; 80048; 85025; 93005

== ENCOUNTER 2017-11-07 11:30 | Observation (INO) ==
--- NOTE | 2017-11-07 11:48 | Progress Note ---
[facility] Anesthesia Record Part I Intake, IV Amount: 300 Estimated blood loss (mL): 0 Urine output (mL): 0 Blood Products used (#): none Blood Pressure: 122/65 SaO2: 97 Pulse Rate: 91 Respiratory Rate: 14 Temperature: 97.2 F Patient is:: Awake Stable to PACU at:: 11:40
--- NOTE | 2017-11-07 11:48 | Progress Note ---
[facility] Anesthesia Checklist - Patient Identification Patient Identification: Arm Band, Verbal (Name & ) - Structural Data Admitted From: Home Consent for Planned Operative Procedure(s) Verified: Yes Verified Documents: Surgical Consent, History and Physical - NPO Status Verified Time NPO: 23:00 - Additional verifications Anesthesia Reactions: No - Airway Assessment C-Spine Mobility Assessed: Yes TMJ Mobility Assessed: Yes Dentition: Poor Dentition - Neurological Assessment Level of Consciousness: Awake Hx Seizures: No Numbness or tingling in extremities: No - Anesthesia Plan Anesthesia Risk discussed: Yes Anesthesia Plan: Verified ASA Class: III Anesthesia Type: MAC [facility] Anesthesia HX I have reviewed the patient's past medical history: Yes Medical History: Reports:: Asthma, Gastroesophageal Reflux Disease(GERD), Hyperlipidemia, Hypertension Denies:: Cancer, Diabetes Mellitus Type 1, Diabetes Mellitus Type 2, Internal Pacemaker, MRSA, Seizures Other Medical History: Reports: Arthritis. Denies: Blood Transfusion Reaction Comment: JERRY Laterality Cases: Right: Total Knee Replacement, Bilateral: Tonsillectomy Other Surgeries: Yes: Hysterectomy-Total, Other. No: Pacemaker Amputation: No Fractures: No *Family Hx:: No significant family history
--- NOTE | 2017-11-07 11:49 | Progress Note ---
[facility] Anesthesia Record Part II Discharge Time: 12:10 Destination: Medical Surgical Department PACU nurse assessment reviewed?: Yes Patient Condition:: Good Anesthesia Complications:: None
--- NOTE | 2017-11-08 08:46 | Pharmacy Consult Notes ---
[facility] Pharmacy VTE Monitoring - Patient Demographics Admission date: 11/07/17 Report Date: 11/08/17 Time: 08:46 Allergies/Adverse Reactions: Patient Allergies No Known Allergies Allergy (Verified 11/07/17 12:42) Height: 1.57 m Weight: 87.317 kg - VTE Risk Was VTE Risk Assessment Performed: Yes VTE Score: 4 VTE Risk Level: Low Risk Clinical Trial Participant: No - Prophylaxis VTE Prophylaxis Ordered?: Yes Types of VTE Prophylaxis: IPCS Knee High (post op) Location of Applied Device: Left Leg
--- NOTE | 2017-11-08 09:43 | Discharge Summary ---
General - General Admission date:: 11/07/17 Discharge date: 11/08/17 Objective Vital signs: Temp Pulse Resp BP Pulse Ox 98.4 F 99 H 20 141/77 96 11/08/17 07:42 11/08/17 07:42 11/08/17 07:42 11/08/17 07:42 11/08/17 08:20 Discharge Plan - Patient Discharge Instructions - Follow up Plan Home Medications: Home Medications Medication Instructions Recorded Confirmed Type albuterol sulfate HFA 90 1 puff INHALATION Q6H 08/17/17 11/06/17 History mcg/actuation aerosol inhaler celecoxib 200 mg capsule 200 mg PO DAILY 08/17/17 11/07/17 History citalopram 20 mg tablet 20 mg PO DAILY 08/17/17 11/06/17 History ranitidine 150 mg tablet 150 mg PO BID 08/17/17 11/06/17 History Lisinopril/Hydrochlorothiazide 1 tab PO DAILY 08/31/17 11/07/17 History [Lisinopril-Hctz 20-12.5 mg Tab] Potassium Chloride [K-Tab ER 10 10 meq PO DAILY 08/31/17 11/06/17 History mEq] Aspirin [Aspirin 325mg Tab] 325 mg PO DAILY 11/06/17 11/06/17 History Multivitamin/Iron/Folic Acid 1 each PO DAILY 11/06/17 11/06/17 History [Centrum Complete Multivit Tab] buPROPion HCl [Bupropion Xl] 150 mg PO DAILY 11/07/17 11/07/17 History Prescriptions/Medication Reconciliation: No Action albuterol sulfate HFA 90 mcg/actuation aerosol inhaler 1 puff INHALATION Q6H citalopram 20 mg tablet 20 mg PO DAILY ranitidine 150 mg tablet 150 mg PO BID celecoxib 200 mg capsule 200 mg PO DAILY Lisinopril/Hydrochlorothiazide [Lisinopril-Hctz 20-12.5 mg Tab] 1 tab PO DAILY Potassium Chloride [K-Tab ER 10 mEq] 10 meq PO DAILY Multivitamin/Iron/Folic Acid [Centrum Complete Multivit Tab] 1 each PO DAILY Aspirin [Aspirin 325mg Tab] 325 mg PO DAILY buPROPion HCl [Bupropion Xl] 150 mg PO DAILY
--- NOTE | 2017-11-08 10:01 | Discharge Summary ---
General - General Admission date:: 11/07/17 Discharge date: 11/08/17 Objective Vital signs: Temp Pulse Resp BP Pulse Ox 98.4 F 99 H 20 141/77 96 11/08/17 07:42 11/08/17 07:42 11/08/17 07:42 11/08/17 07:42 11/08/17 08:20 Discharge Plan - Patient Discharge Instructions ACTIVITY: Continue current activity DIET: continue same diet - Follow up Plan Disposition: Home, Self-Fpc Medications: Home Medications Medication Instructions Recorded Confirmed Type albuterol sulfate HFA 90 1 puff INHALATION Q6H 08/17/17 11/06/17 History mcg/actuation aerosol inhaler celecoxib 200 mg capsule 200 mg PO DAILY 08/17/17 11/07/17 History citalopram 20 mg tablet 20 mg PO DAILY 08/17/17 11/06/17 History ranitidine 150 mg tablet 150 mg PO BID 08/17/17 11/06/17 History Lisinopril/Hydrochlorothiazide 1 tab PO DAILY 08/31/17 11/07/17 History [Lisinopril-Hctz 20-12.5 mg Tab] Potassium Chloride [K-Tab ER 10 10 meq PO DAILY 08/31/17 11/06/17 History mEq] Aspirin [Aspirin 325mg Tab] 325 mg PO DAILY 11/06/17 11/06/17 History Multivitamin/Iron/Folic Acid 1 each PO DAILY 11/06/17 11/06/17 History [Centrum Complete Multivit Tab] buPROPion HCl [Bupropion Xl] 150 mg PO DAILY 11/07/17 11/07/17 History Prescriptions/Medication Reconciliation: Continue albuterol sulfate HFA 90 mcg/actuation aerosol inhaler 1 puff INHALATION Q6H citalopram 20 mg tablet 20 mg PO DAILY ranitidine 150 mg tablet 150 mg PO BID celecoxib 200 mg capsule 200 mg PO DAILY Lisinopril/Hydrochlorothiazide [Lisinopril-Hctz 20-12.5 mg Tab] 1 tab PO DAILY Potassium Chloride [K-Tab ER 10 mEq] 10 meq PO DAILY Multivitamin/Iron/Folic Acid [Centrum Complete Multivit Tab] 1 each PO DAILY Aspirin [Aspirin 325mg Tab] 325 mg PO DAILY buPROPion HCl [Bupropion Xl] 150 mg PO DAILY
--- NOTE | 2017-11-10 11:44 | Operative Note ---
Date of procedure: 11/08/17 Pre-op Diagnosis:: Arthrofibrosis right knee Post-op Diagnosis:: Same Procedure performed:: Manipulation under anesthesia, right knee Surgeon:: Alexy Hawkins MD [employer]:: Other Anesthesia: regional Estimated blood loss (mL): 0 Operative findings:: Pre-manipulation range of motion approximately 15 to 75 Operative note:: Patient was taken the operating room and under benefit of a regional anesthetic plus propofol, the right knee range of motion was assessed. We then gently began manipulation under anesthesia, gently flexing and extending the knee for several minutes until we were gaining no further range of motion. Range of motion after manipulation was 7 to 112. Interoperative photographs were taken to document this. The knee was measured with goniometer. Post manipulation, knee stability was excellent. No complications ensued Condition: stable Disposition: PACU Complications:: No complications
== END 2017-11-08 11:30 | disposition home or self-care (01) ==
LOC: 2ND → EDSTATUS 11:30
PROVIDERS: ADMIT Orthopaedic Surgery; ATTEND Orthopaedic Surgery
CPT/HCPCS: 96374; 97110; 97116; 97161; G0378

== ENCOUNTER → 2018-01-06 13:42 | Outpatient (CLI) | payer BC, OTHER, SELFPAY ==
--- NOTE | 2018-01-06 | NVE_ITS ---
Venous Exam Indications: 729.5 Pain in limb. 729.81 Swelling of limb. IMPRESSIONS No evidence of deep or superficial vein thrombosis involving the right lower extremity Right lower extremity venous duplex evaluation. Doppler flow study including spectral analysis, color and snow scale imaging. Location: Vascular laboratory. Patient status: Outpatient. Tables: Venous flow and imaging: + +-------+ + Location Overall Flow properties + +-------+ + Right common femoral Patent Normal phasicity; spontaneous; normal augmentation; compressible + +-------+ + Right saphenofemoral junction Patent Compressible + +-------+ + Right profunda femoral Patent Compressible + +-------+ + Right femoral Patent Normal phasicity; spontaneous; normal augmentation; compressible + +-------+ + Right greater saphenous Patent Normal phasicity; spontaneous; normal augmentation; compressible + +-------+ + Right popliteal Patent Normal phasicity; spontaneous; normal augmentation; compressible + +-------+ + Right posterior tibial Patent Compressible + +-------+ + Right peroneal Patent Compressible + +-------+ + Right gastrocnemius Patent Compressible + +-------+ + Right soleal Patent Compressible + +-------+ + (Report amended ) Electronically signed by: Rudi Cazares [id number]
== END ==
PROVIDERS: Visit Provider Internal Medicine
DX: M79.89 Other specified soft tissue disorders (principal); M79.604 Pain in right leg
CPT/HCPCS: 93971

== ENCOUNTER → 2018-08-02 14:04 | Outpatient (CLI) | payer MEDICARE, BC, OTHER, SELFPAY ==
--- NOTE | 2018-08-02 14:14 | XR_ITS ---
XR tibia fibula LT 2V CLINICAL INDICATION: ITS.REASON: left knee/ leg pain ORDERING PHYSICIAN: Cuba Moreno MD PATIENT AGE: 63 years Comparison: None FINDINGS: There are moderate osteoarthritic changes of the medial compartment with mild osteoarthritic change of the patellofemoral joint and lateral compartment of the knee. Mild cortical thickening involves the proximal tibia medially. This is well-circumscribed and is consistent with muscular insertion as an incidental finding having a similar appearance on the study of 11/01/2013. No acute fracture or dislocation. No lytic or blastic change. The mid and distal aspect of the tib-fib has an unremarkable appearance. IMPRESSION: Osteoarthritis of the knee otherwise negative.
--- NOTE | 2018-08-02 14:14 | XR_ITS ---
XR hip LT 2-3V w/pelvis HISTORY: ITS.REASON: left hip pain/ leg pain ORDERING PHYSICIAN: Cuba Moreno MD PATIENT AGE: 63 years COMPARISON: None FINDINGS: No fracture or dislocation is evident. There are mild osteoarthritic changes of the left hip with slight decrease in the joint space. On the abduction view there is curvilinear calcification along the lateral aspect of the hip consistent with capsular calcification. IMPRESSION: Mild osteoarthritis of the left hip with mild capsular calcification laterally
--- NOTE | 2018-08-02 14:14 | XR_ITS ---
XR knee LT 4V HISTORY: Left knee pain ITS.REASON: LEFT KNEE pain 4 views weightbearing ORDERING PHYSICIAN: Cuba Moreno MD PATIENT AGE: 63 years COMPARISON: None FINDINGS: There are moderate to severe osteoarthritic changes of the medial compartment and patellofemoral joint with mild osteoarthritic change of the lateral compartment of the knee. Mild cortical thickening involves the proximal tibia medially. This is well-circumscribed and is consistent with muscular insertion as an incidental finding having a similar appearance on the study of 11/01/2013. No acute fracture or dislocation. No lytic or blastic change. IMPRESSION: Moderate to severe osteoarthritic changes of the left knee. These have progressed compared to the previous exam
--- NOTE | 2018-08-02 14:35 | XR_ITS ---
XR knee RT 2V HISTORY: Pain ORDERING PHYSICIAN: Cuba Moreno MD PATIENT AGE: 63 years COMPARISON: 11/02/2017 FINDINGS: Status post total knee arthroplasty good alignment and no significant change. No fracture or dislocation. There is some increased density in the suprapatellar region suggesting a small knee joint effusion IMPRESSION: Status post total knee arthroplasty with good alignment and possible knee joint effusion
== END ==
PROVIDERS: PCP Internal Medicine; Visit Provider Orthopaedic Surgery
DX: M25.562 Pain in left knee (principal); M25.552 Pain in left hip; Z96.651 Presence of right artificial knee joint
CPT/HCPCS: 73502; 73560; 73564; 73590

== ENCOUNTER → 2019-02-05 08:32 | Outpatient (CLI) | payer MEDICARE, BC, OTHER, SELFPAY ==
--- NOTE | 2019-02-05 08:39 | XR_ITS ---
XR knee LT 4V HISTORY: Knee pain ITS.REASON: weightbearing/ left knee pain ORDERING PHYSICIAN: Cuba Moreno MD PATIENT AGE: 64 years COMPARISON: 08/02/2018 FINDINGS: There are moderate to severe osteoarthritic changes of the medial compartment and patellofemoral joint similar to the previous exam. There is bony sclerosis at the medial compartment. There is mild varus angulation of the tibia distally. No acute fracture or dislocation. There is a small suprapatellar effusion. IMPRESSION: Moderate to severe osteoarthritis of the left knee not significant changed
--- NOTE | 2019-02-05 08:39 | XR_ITS ---
XR knee RT 2V HISTORY: Follow-up knee replacement ITS.REASON: status post RT tka ORDERING PHYSICIAN: Cuba Moreno MD PATIENT AGE: 64 years COMPARISON: 08/02/2018 FINDINGS: Status post total knee replacement with good alignment and no evidence of orthopedic complications with no significant change. IMPRESSION: Status post total knee replacement, no acute finding
== END ==
PROVIDERS: PCP Internal Medicine; Visit Provider Orthopaedic Surgery
DX: M17.12 Unilateral primary osteoarthritis, left knee; Z96.651 Presence of right artificial knee joint
CPT/HCPCS: 73560; 73564

== ENCOUNTER 2020-01-04 21:12 | Emergency (ER) | payer MEDICARE, OTHER, SELFPAY ==
[2020-01-04 21:26] VITALS: BP 146/73; PULSE 94; RESP 16; TEMP 37.2; O2SAT 97; BMI 35.4
--- NOTE | 2020-01-04 21:33 | CT_ITS ---
Procedure: CT ABDOMEN PELVIS WO CON Patient Age:64Y CLINICAL INDICATION: Hematuria with bilat flank pain Leukocytosis elevated C-reactive protein urinary tract infection COMPARISON: CXR2V XR chest 2V from 07/14/2017 CXR2V XR chest 2V from 11/18/2018 TECHNIQUE: No oral nor IV contrast utilized Helical the axial images obtained with sagittal and coronal reformats. All CT scans at the facility use one or more dose reduction, viz: automated exposure control, ma/kV adjustment per patient size (including targeted exams where dose is matched to indication, i.e. head), or iterative reconstruction technique. FINDINGS: Lower thorax:. Moderate size hiatal hernia over 5.5 cm transverse measurement. Most likely scarring and atelectasis medial aspect of the right lung base. Doubt early infiltrate (axial image 24) 4mm nodular density posterior RLL, axial image 13. Fairly dense for size and may be a small early calcified granuloma. ABDOMEN: Liver: No significant appearing masses. No biliary dilatation. Small 8 mm low-density area at the dome of left lobe of liver- most likely benign features such as small cyst. It does measure measures fluid density Gallbladder: Nondistended. No radio opaque stones. Pancreas: Unremarkable on this noncontrast study. No masses nor the peripancreatic fluid collections. Spleen: . normal size with a few scattered granulomatous calcifications. Adrenals: unremarkable tract Kidneys/ureters:. No urinary tract obstruction. No hydronephrosis.. Only question some periureteral stranding about distal ureters. Left more so than right. Nonspecific could reflect some mild recently passed stone or UTI this is mention by Reji WILLIAMSON preliminary report but I find this very unimpressive Left kidney: Irregular contour lateral left kidney likely reflect old scarring. Tiny less than 1.5 mm pinpoint calculus, mid portion left kidney. Nonobstructive.-barely appreciable coronal image 43 Left kidney is slightly smaller than right kidney. Left kidney measuring 9.1 cm length on the sagittal image vs Right Kidney 11.4 cm length PELVIS:. Mom the the uterus removed. No adnexal masses but no significant free fluid at pelvis or cul-de-sac. Bladder: Diffuse wall thickening may in part reflect its decompressed state in current setting is suspect for cystitis. GI tract ------ Stomach and small bowel bowel: Nondistended. No obvious mass or thickening. Peritoneum: No abnormal fluid collections. No obvious inflammatory changes. No free air. Fat containing inguinal hernias: The right inguinal hernia most evident, most prominent. The left is very small. No inflammation or bowel loops Very small/Tiny fat containing umbilical hernia. Not of significance Lymph nodes: No enlarged lymph nodes apparent. Vasculature: No evidence of abdominal aortic aneurysm. No retroperitoneal hemorrhage evident. Bones: No acute fracture IMPRESSION: 1.Diffuse wall thickening urinary bladder in part reflects its decompressed state, but is suspect for cystitis with current findings 2.. Nonobstructive nephrolithiasis . Also note scarring and decreased size of left kidney compared to right noted Only question very minor, subtle periureteral stranding about distal ureters but reflect UTI or recently passed stone conceivably but very unimpressive 3..Other nonacute observations . Moderate size hiatal hernia . Fat containing right inguinal hernia, with small developing left inguinal hernia as well.-no associated bowel loops nor inflammation . Small 8 mm low-density area dome of left lobe of liver-favor benign feature, suspect hepatic cyst. Dictated by: Bruno Huerta MD 01/05/2020 16:05 Electro
[2020-01-04 21:41] LABS: Microscopic, Urine URINE MICROSCOPIC (MICROSCOPIC)
[2020-01-04 21:47] LABS: Basophils # 0.1 K/mm3 (0-0.2); Basophils % 0.6 % (0.1-2.0); Eosinophils # 0.3 K/mm3 (0.0-0.4); Eosinophils % 2.1 % (0.1-12.0); Hematocrit 44.2 % (37.0-47.0); Hemoglobin 15.7 g/dL (12.2-16.2); Lymphocytes % 22.5 % (10-50); Mean Corpuscular HGB Conc 35.5 g/dL (31.8-35.4); Mean Corpuscular Hemoglobin 33.3 pg (27.0-31.2); Mean Corpuscular Volume 93.8 fl (81-99); Mean Platelet Volume 7.1 fl (7.4-10.4); Monocytes # 0.6 K/mm3 (0.1-1.0); Monocytes % 4.4 % (1.7-9.3); Neutrophils # 9.4 K/mm3 (1.8-7.8); Neutrophils % 70.5 % (37.0-80.0); Platelet Count 292 K/mm3 (142-424); Red Blood Count 4.71 M/mm3 (4.20-5.40); Red Cell Distribution Width 13.9 % (11.5-17.5); White Blood Count 13.3 K/mm3 (4.8-10.8)
[2020-01-04 21:49] LABS: Appearance,Urine TURBID (Clear); Bilirubin,Urine Negative (Negative); Blood, Urine 3+ (Negative); Color,Urine BROWN (Yellow); Glucose,Urine (UA) Negative (Negative); Ketones,Urine Negative (Negative); Leukocyte Esterase,Urine TRACE (Negative); Nitrate,Urine POSITIVE (Negative); PH,Urine 5.5 (5.0-8.5); Protein,Urine 2+ (Negative); Specific Gravity, Urine >= 1.030 (1.005-1.030); Urobilinogen,Urine 0.2 EU/dl (0.2)
[2020-01-04 21:50] LABS: RBC,Urine TNTC #/hpf (0-3)
[2020-01-04 21:59] LABS: Alanine Aminotransferase 15 U/L (12-78); Albumin Level 4.4 g/dl (3.5-5.0); Albumin/Globulin Ratio 1.5 (1.1-1.8); Alkaline Phosphatase 104 U/L (38-126); Aspartate Amino Transferase 22 U/L (14-36); Bilirubin,Total 0.4 mg/dl (0.2-1.3); Blood Urea Nitrogen 17 mg/dl (7-17); Calcium 9.6 mg/dl (8.4-10.2); Carbon Dioxide 32 mmol/L (22.0-30.0); Chloride 100 mmol/L (98-107); Creatinine Clearance Estimated 79 mL/min (50-200); Estimated Glomerular Filt Rate 63 ml/min (>60); GFR (African American) 76 ML/MIN (>60); Glucose 130 mg/dl (74-100); Sodium 137 mmol/L (136-145); Total Protein,Serum 7.4 g/dl (6.3-8.2)
[2020-01-04 22:04] LABS: C-Reactive Protein 4.3 mg/L (0-4)
--- NOTE | 2020-01-04 22:29 | HMH.EDUROGF ---
ED Disposition Clinical Impression: UTI (urinary tract infection) Qualifiers: Urinary tract infection type: site unspecified Hematuria presence: without hematuria Qualified Code(s): N39.0 - Urinary tract infection, site not specified Hematuria Qualifiers: Hematuria type: unspecified type Qualified Code(s): R31.9 - Hematuria, unspecified Disposition: Home, Self-Care Condition on Discharge: Good Instructions: DI for Urinary Tract Infection (UTI) Additional Instructions: use meds and see pcp and dr sexton for follo wup Prescriptions: levoFLOXacin [Levaquin 500mg tab] 500 mg PO DAILY #7 tab Transmission Status: Pending to [id number] Phenazopyridine HCl [Pyridium 200mg Tablet] 200 pow PO TID #6 tab Transmission Status: Pending to [id number] Referrals: Benji Walton [Primary Care Provider] - - Critical Care Critical Care Time: No Attestation: On 01/04/20, the high probability of a clinically significant, sudden or life threatening deterioration of the following system(s) required my full and direct attention, intervention and personal management. The time I documented below is in addition to time spent performing reported procedures but includes the following listed in this critical care notation. Medical Decision Making - Medical Records Medical records reviewed: Yes: I reviewed the patient's medical records. - [place] Inquiry Pt receiving controlled substance: No Vital Signs: 01/04/20 21:26 Temperature 98.9 F Temperature Source Oral Pulse Rate [Right] 94 H Respiratory Rate 16 Blood Pressure [Right Arm] 146/73 H Blood Pressure Mean [Right Arm] 97 Blood Pressure Source [Right Arm] Automatic Cuff Blood Pressure Position [Right Arm] Sitting 02 Sat by Pulse Oximetry 97 Oxygen Delivery Method Room Air - Lab Data Lab results reviewed: Yes: I reviewed the patient's lab results. Lab Results 01/04/20 21:25: Urine Color Brown, Urine Appearance Turbid, Urine pH 5.5, Ur Specific [place] >= 1.030, Urine Protein 2+, Urine Glucose (UA) Negative, Urine Ketones Negative, Urine Blood 3+, Urine Nitrate Positive, Urine Bilirubin Negative, Urine Urobilinogen 0.2, Ur Leukocyte Esterase Trace, Urine RBC Tntc, Urine WBC 10-20, Ur Squamous Epith Cells 5-10 01/04/20 21:40: WBC 13.3 H, RBC 4.71, Hgb 15.7, Hct 44.2, MCV 93.8, MCH 33.3 H, MCHC 35.5 H, RDW 13.9, Plt Count 292, MPV 7.1 L, Neut % (Auto) 70.5, Lymph % (Auto) 22.5, [place] % (Auto) 4.4, Eos % (Auto) 2.1, Baso % (Auto) 0.6, Neut # (Auto) 9.4 H, Lymph # (Auto) 3.0, [place] # (Auto) 0.6, Eos # (Auto) 0.3, Baso # (Auto) 0.1, ESR 16 01/04/20 21:40: Sodium 137, Potassium 4.0, Chloride 100, Carbon Dioxide 32 H, Anion Gap 9.0, BUN 17, Creatinine 0.90, Estimated Creat Clear 79, Estimated GFR 63, Est GFR ( Amer) 76, Glucose 130 H, Calcium 9.6, Total Bilirubin 0.4, AST 22, ALT 15, Alkaline Phosphatase 104, C-Reactive Protein 4.3 H, Total Protein 7.4, Albumin 4.4, Globulin 3.0, Albumin/Globulin Ratio 1.5 Result diagrams: 01/04/20 21:40 01/04/20 21:40 Orders (Tests/Meds): ED MEDICATIONS Generic Name Dose Route Start Last Admin Trade Name Freq PRN Reason Stop Dose Admin Sodium Chloride 1,000 mls @ 999 mls/hr 01/04/20 21:45 01/04/20 22:37 Sod Chlor 0.9% 1000ml Bag IV 01/04/20 22:45 999 mls/hr .Q1H1M LOUIS Administration Ceftriaxone Sodium 1 gm/ 50 mls @ 100 mls/hr 01/04/20 22:45 01/04/20 22:38 Sodium Chloride IV 01/18/20 22:44 100 mls/hr Q24H LOUIS Administration Protocol Phenazopyridine HCl 200 mg 01/04/20 22:38 Pyridium 200mg Tablet PO 01/04/20 22:39 ONCE ONE Discontinued Medications Generic Name Dose Route Start Last Admin Trade Name Freq PRN Reason Stop Dose Admin Ketorolac Tromethamine 30 mg 01/04/20 22:34 01/04/20 22:38 Toradol 30mg/Ml Vial IV 01/04/20 22:35 30 mg ONCE ONE Administration ORDERS Category Date Time Status CT abdomen pelvis wo con Stat Cat Scan 01/04/20 21:33 Take
[2020-01-04 22:32] LABS: Erythrocyte Sedimentation Rate 16 mm/hr (0-30)
[2020-01-04 23:06] VITALS: BP 142/72; PULSE 84; RESP 16; TEMP 37.2; O2SAT 98
== END 2020-01-04 23:08 | disposition home or self-care (01) ==
PROVIDERS: Emergency Provider Emergency Medicine; PCP Internal Medicine
DX: N30.01 Acute cystitis with hematuria (principal); K21.9 Gastro-esophageal reflux disease without esophagitis; E78.5 Hyperlipidemia, unspecified; I10 Essential (primary) hypertension; F17.210 Nicotine dependence, cigarettes, uncomplicated; Z90.09 Acquired absence of other part of head and neck
CPT/HCPCS: 74176; 80053; 81001; 85025; 85651; 86140; 87086; 87088; 87186; 96365; 96367; 96375; 99283

== ENCOUNTER → 2020-03-03 15:33 | Outpatient (CLI) | payer MEDICARE, OTHER, SELFPAY ==
--- NOTE | 2020-03-03 15:39 | XR_ITS ---
PROCEDURE: XR TIBIA FIBULA LT 2V CLINICAL INDICATION: Pain COMPARISON: CR TIBIALT XR tibia fibula LT 2V from 08/02/2018 CR XR KNEE LT 3V from 03/03/2020 FINDINGS: Osteoarthritic changes are present involving the medial compartment of the knee and the patellofemoral joint which are mild to moderate in nature. Minimal osteoarthritic change involves the lateral compartment. The mid distal aspect of the tibia and fibula have an unremarkable appearance. There may be a loose body in the popliteal fossa region at the intercondylar aspect of the distal femur measuring approximately 12 mm IMPRESSION: 1. No acute finding. 2. Osteoarthritic changes of the knee with possible loose intra-articular body at the intercondylar region of the distal femur Dictated by: Rudi Cazares MD 03/03/2020 16:11 Rudi Cazares MD in [place] 03/03/2020 16:11
--- NOTE | 2020-03-03 15:40 | XR_ITS ---
PROCEDURE: XR HAND RT MIN 3V CLINICAL INDICATION: PAIN Chronic pain COMPARISON: CR HANDR3 HAND-RT 3 VIEWS from 03/02/2017 FINDINGS: Osteoarthritic changes are present at the 1st interphalangeal joint, 1st metacarpal-carpal joint, 2nd metacarpophalangeal joint No fracture or dislocation. No lytic or blastic change. Other findings:None. IMPRESSION: Mild osteoarthritic changes Dictated by: Rudi Cazares MD 03/03/2020 16:09 Rudi Cazares MD in [place] 03/03/2020 16:09
== END ==
PROVIDERS: PCP Internal Medicine; Visit Provider Internal Medicine
DX: M25.562 Pain in left knee (principal); M79.641 Pain in right hand; R60.0 Localized edema
CPT/HCPCS: 73130; 73562; 73590

== ENCOUNTER → 2020-04-07 12:54 | Outpatient (CLI) | payer MEDICARE, OTHER, SELFPAY ==
--- NOTE | 2020-04-07 13:01 | XR_ITS ---
PROCEDURE: XR KNEE LT 4V CLINICAL INDICATION: left knee pain COMPARISON: CR KNEELMRT XR knee RT 2V from 11/02/2017 CR KNEELMRT XR knee RT 2V from 08/02/2018 CR [id number] XR knee LT 4V from 08/02/2018 CR XR KNEE LT 3V from 03/03/2020 FINDINGS: There are moderate to severe osteoarthritic changes of the left knee involving the medial compartment and patellofemoral joint with a small suprapatellar effusion. A loose body is present in the popliteal fossa which measures 16 mm. No fracture or dislocation. Other findings:None. IMPRESSION: Moderate to severe osteoarthritic changes of the left knee with knee joint effusion and suspected loose body in the popliteal fossa Dictated by: Rudi Cazares MD 04/07/2020 14:06 Rudi Cazares MD in [place] 04/07/2020 14:06
== END ==
PROVIDERS: PCP Internal Medicine; Visit Provider Orthopaedic Surgery
DX: M17.12 Unilateral primary osteoarthritis, left knee (principal)
CPT/HCPCS: 73564

== ENCOUNTER → 2020-10-09 15:12 | Outpatient (CLI) | payer MEDICARE, OTHER, SELFPAY ==
--- NOTE | 2020-10-09 15:19 | XR_ITS ---
PROCEDURE: XR KNEE LT 3V CLINICAL INDICATION: FALL, LT KNEE PAIN,LT FOOT PAIN COMPARISON: CR KNEELMRT XR knee RT 2V from 08/02/2018 CR [id number] XR knee LT 4V from 08/02/2018 CR XR KNEE LT 3V from 03/03/2020 CR XR KNEE LT 4V from 04/07/2020 FINDINGS: Severe degenerative changes of the right knee joint are noted, worse in the medial compartment with [id number] appearance. Subchondral sclerosis is noted, worse on the right medial compartment. Tricompartmental osteophyte formation mild medial subluxation is noted. Small suprapatellar joint effusion. No acute fractures or dislocations. Visualized soft tissues are unremarkable. IMPRESSION: Degenerative changes of the knee joint, worse in the medial compartment. Dictated by: Rose Moreno 10/09/2020 15:53 Rose Moreno in [place] 10/09/2020 15:53
--- NOTE | 2020-10-09 15:19 | XR_ITS ---
PROCEDURE: XR FOOT LT MIN 3V CLINICAL INDICATION: FALL, LT KNEE PAIN,LT FOOT PAIN COMPARISON: No exams were available for comparison FINDINGS: No fracture or dislocation. No lytic or blastic change. There is normal mineralization. The joint spaces are well-preserved. No significant degenerative/arthritic changes. No erosive changes evident. Other findings:Calcaneal spur is noted. No significant soft tissue abnormality. IMPRESSION: No acute findings. Dictated by: Rose Moreno 10/09/2020 15:51 Rose Moreno in [place] 10/09/2020 15:51
== END ==
PROVIDERS: PCP Internal Medicine; Visit Provider Internal Medicine
DX: M25.562 Pain in left knee (principal); M79.672 Pain in left foot; W19.XXXA Unspecified fall, initial encounter
CPT/HCPCS: 73562; 73630

== ENCOUNTER → 2021-03-19 15:14 | Outpatient (CLI) | payer MEDICARE, OTHER, SELFPAY ==
--- NOTE | 2021-03-19 15:21 | XR_ITS ---
PROCEDURE: XR SHOULDER RT MIN 2V CLINICAL INDICATION: RT SHOULDER PAIN X 2MONTHS COMPARISON: CR SHOU1R [id number] VIEW-RT from 05/30/2013 CR SHOU3R [id number] VIEWS from 06/04/2013 CR SHOU3R [id number] VIEWS from 06/19/2013 CR SHOU3R [id number] VIEWS from 07/25/2013 FINDINGS: There are mild osteoarthritic changes of the AC joint and glenohumeral joint. No fracture or dislocation. No lytic or blastic change. Other findings:None. IMPRESSION: Mild osteoarthritis of the right AC joint and glenohumeral joint Dictated by: Rudi Cazares MD 03/19/2021 15:59 Rudi Cazares MD in [place] 03/19/2021 15:59
== END ==
PROVIDERS: PCP Internal Medicine; Visit Provider Internal Medicine
DX: M25.511 Pain in right shoulder (principal)
CPT/HCPCS: 73030

== ENCOUNTER → 2021-09-07 13:09 | Outpatient (CLI) | payer MEDICARE, OTHER, SELFPAY ==
--- NOTE | 2021-09-07 13:21 | XR_ITS ---
FINAL REPORT CLINICAL HISTORY: left knee pain COMPARISON: 10/09/2020 FINDINGS: LEFT KNEE Four views demonstrate no acute fracture or dislocation. There are degenerative changes in the medial compartment, progressed since prior. Small effusion is identified. The visualized bony structures are well aligned. No soft tissue abnormality is seen. IMPRESSION: Degenerative changes and small joint effusion. Reviewed, Interpreted and Dictated by Abisai Villanueva III, MD Transcribed by Latoya Schwarz Authenticated by Abisai Villanueva III, MD on 09/07/2021 02:27:03 PM [facility]
--- NOTE | 2021-09-07 13:21 | XR_ITS ---
FINAL REPORT CLINICAL HISTORY: left lower extremity pain/ swelling FINDINGS: LEFT TIBIA FIBULA Two views demonstrate no acute fracture or dislocation. There is chronic deformity of the proximal tibia, may represent sequela of prior fracture. There are moderate degenerative changes, worst in the medial compartment. There is a chronic osteochondral lesion of the medial femoral condyle. IMPRESSION: Degenerative and chronic appearing findings. Reviewed, Interpreted and Dictated by Abisai Villanueva III, MD Transcribed by Latoya Schwarz Authenticated by Abisai Villanueva III, MD on 09/07/2021 02:09:16 PM [facility]
--- NOTE | 2021-09-07 14:53 | CA_ITS ---
FINAL REPORT TECHNIQUE: Color Doppler, duplex Doppler and compression sonography of the left lower extremity deep venous systems was performed. CLINICAL HISTORY: evaluate for dvt, SWELLING PAIN X 1 MONTH LOWER LEFT LEG. AWAITING LEFT TOTAL KNEE REPLACEMENT FINDINGS: There is no evidence of deep venous thrombosis from the level of the groin to the calf. The veins are patent and compressible. IMPRESSION: No evidence of deep venous thrombosis left lower extremity. Reviewed, Interpreted and Dictated by Abisai Villanueva III, MD Transcribed by Valerie Barrera Authenticated by Abisai Villanueva III, MD on 09/07/2021 04:47:48 PM [facility]
[2021-09-07 15:20] LABS: Basophils # 0.1 K/mm3 (0-0.2); Basophils % 1.1 % (0.1-2.0); Eosinophils # 0.4 K/mm3 (0.0-0.4); Eosinophils % 4.2 % (0.1-12.0); Hematocrit 49.2 % (37.0-47.0); Hemoglobin 15.4 g/dL (12.2-16.2); Lymphocytes # 2.3 K/mm3 (0.7-4.5); Lymphocytes % 22.6 % (10-50); Mean Corpuscular HGB Conc 31.2 g/dL (31.8-35.4); Mean Corpuscular Hemoglobin 31.9 pg (27.0-31.2); Mean Corpuscular Volume 102.2 fl (81-99); Mean Platelet Volume 7.9 fl (7.4-10.4); Monocytes # 0.6 K/mm3 (0.1-1.0); Monocytes % 5.5 % (1.7-9.3); Neutrophils # 6.9 K/mm3 (1.8-7.8); Neutrophils % 66.6 % (37.0-80.0); Platelet Count 361 K/mm3 (142-424); Red Blood Count 4.82 M/mm3 (4.20-5.40); Red Cell Distribution Width 13.7 % (11.5-17.5); White Blood Count 10.3 K/mm3 (4.8-10.8)
[2021-09-07 15:26] LABS: C-Reactive Protein 7.9 mg/L (0-4)
[2021-09-07 16:56] LABS: Erythrocyte Sedimentation Rate 16 mm/hr (0-30)
== END ==
PROVIDERS: PCP Internal Medicine; Visit Provider Orthopaedic Surgery
DX: G89.29 Other chronic pain (principal); M25.562 Pain in left knee; M79.605 Pain in left leg; M79.89 Other specified soft tissue disorders
CPT/HCPCS: 36415; 73564; 73590; 85025; 85651; 86140; 93971

== ENCOUNTER → 2021-09-17 07:54 | Outpatient (CLI) | payer MEDICARE, OTHER, SELFPAY ==
--- NOTE | 2021-09-17 08:37 | CT_ITS ---
FINAL REPORT TECHNIQUE: Thin section axial CT images of the left lower extremity with coronal and sagittal reformats were performed. This study was performed with techniques to keep radiation doses as low as reasonably achievable (ALARA). Individualized dose reduction techniques using automated exposure control or adjustment of mA and/or kV according to the patient''s size were employed. CLINICAL HISTORY: Pain left lower leg, swelling, no injury FINDINGS: There is no acute fracture. Moderate and severe degenerative changes are seen of the knee, greatest in the medial compartment. New bone formation is seen along the medial cortex of the proximal tibia which could represent sequela of prior fracture or stress fracture. There are mild degenerative changes at the ankle and moderate degenerative changes of the knee. Circumferential edema is seen of the ankle. IMPRESSION: No acute fracture. Moderate to severe degenerative changes, greatest in the medial compartment. New bone formation along the medial cortex of the proximal tibia which could represent sequela of prior fracture or stress fracture. Reviewed, Interpreted and Dictated by Abisai Villanueva III, MD Transcribed by Ledy Landry Authenticated by Abisai Villanueva III, MD on 09/17/2021 10:44:32 AM [facility]
== END ==
PROVIDERS: PCP Internal Medicine; Visit Provider Internal Medicine
DX: M17.12 Unilateral primary osteoarthritis, left knee (principal); R06.02 Shortness of breath
CPT/HCPCS: 73700; 93306

== ENCOUNTER → 2021-09-22 13:44 | Outpatient (CLI) | payer MEDICARE, OTHER, SELFPAY ==
[2021-09-22 14:03] LABS: Basophils # 0.1 K/mm3 (0-0.2); Basophils % 1.2 % (0.1-2.0); Eosinophils # 0.4 K/mm3 (0.0-0.4); Eosinophils % 4.3 % (0.1-12.0); Hematocrit 46.3 % (37.0-47.0); Hemoglobin 15.1 g/dL (12.2-16.2); Lymphocytes # 2.1 K/mm3 (0.7-4.5); Lymphocytes % 25.1 % (10-50); Mean Corpuscular HGB Conc 32.5 g/dL (31.8-35.4); Mean Corpuscular Hemoglobin 31.8 pg (27.0-31.2); Mean Corpuscular Volume 97.7 fl (81-99); Mean Platelet Volume 7.8 fl (7.4-10.4); Monocytes # 0.4 K/mm3 (0.1-1.0); Monocytes % 5.2 % (1.7-9.3); Neutrophils # 5.5 K/mm3 (1.8-7.8); Neutrophils % 64.2 % (37.0-80.0); Platelet Count 365 K/mm3 (142-424); Red Blood Count 4.74 M/mm3 (4.20-5.40); Red Cell Distribution Width 13.8 % (11.5-17.5); White Blood Count 8.6 K/mm3 (4.8-10.8)
[2021-09-22 14:21] LABS: C-Reactive Protein 8.9 mg/L (0-4)
[2021-09-22 15:58] LABS: Erythrocyte Sedimentation Rate 47 mm/hr (0-30)
== END ==
PROVIDERS: Visit Provider Orthopaedic Surgery
DX: R60.0 Localized edema (principal); Z96.659 Presence of unspecified artificial knee joint; G89.29 Other chronic pain; M25.562 Pain in left knee
CPT/HCPCS: 36415; 85025; 85651; 86140; 87070; 87075; 87205

== ENCOUNTER → 2021-10-12 11:27 | Outpatient (CLI) | payer MEDICARE, OTHER, SELFPAY ==
[2021-10-12 12:20] LABS: Basophils # 0.1 K/mm3 (0-0.2); Basophils % 0.8 % (0.1-2.0); Eosinophils # 0.3 K/mm3 (0.0-0.4); Eosinophils % 3.5 % (0.1-12.0); Hematocrit 44.4 % (37.0-47.0); Hemoglobin 14.4 g/dL (12.2-16.2); Lymphocytes # 2.3 K/mm3 (0.7-4.5); Mean Corpuscular HGB Conc 32.5 g/dL (31.8-35.4); Mean Corpuscular Hemoglobin 32.4 pg (27.0-31.2); Mean Corpuscular Volume 99.5 fl (81-99); Monocytes # 0.5 K/mm3 (0.1-1.0); Monocytes % 5.4 % (1.7-9.3); Neutrophils # 5.7 K/mm3 (1.8-7.8); Neutrophils % 64.2 % (37.0-80.0); Platelet Count 373 K/mm3 (142-424); Red Blood Count 4.46 M/mm3 (4.20-5.40); Red Cell Distribution Width 13.8 % (11.5-17.5); White Blood Count 8.9 K/mm3 (4.8-10.8)
[2021-10-12 12:58] LABS: Erythrocyte Sedimentation Rate 18 mm/hr (0-30)
[2021-10-12 13:13] LABS: C-Reactive Protein 5.1 mg/L (0-4)
== END ==
PROVIDERS: Visit Provider Orthopaedic Surgery
DX: R60.0 Localized edema (principal)
CPT/HCPCS: 36415; 85025; 85651; 86140

== ENCOUNTER → 2021-10-16 12:55 | Outpatient (CLI) | payer MEDICARE, OTHER, SELFPAY ==
--- NOTE | 2021-10-16 12:56 | ECG_ITS ---
APPROVED REPORT Exam: Resting ECG HR:76 bpm ECG Measurements Heart Rate 76 AXES GA 149 P 66 QRSd 85 QRS 67 QT 389 T 92 QTc 420 Conclusion SINUS RHYTHM NONSPECIFIC T-WAVE ABNORMALITY BORDERLINE ECG UNCONFIRMED REPORT Electronically signed by : Louis Lee MD 10/17/2021 09:04:09
[2021-10-16 13:02] LABS: Microscopic, Urine URINE MICROSCOPIC (MICROSCOPIC)
[2021-10-16 13:26] LABS: Basophils # 0.1 K/mm3 (0-0.2); Basophils % 1.3 % (0.1-2.0); Eosinophils # 0.2 K/mm3 (0.0-0.4); Eosinophils % 2.5 % (0.1-12.0); Hematocrit 42.6 % (37.0-47.0); Hemoglobin 14.2 g/dL (12.2-16.2); Lymphocytes # 1.8 K/mm3 (0.7-4.5); Lymphocytes % 23.6 % (10-50); Mean Corpuscular HGB Conc 33.4 g/dL (31.8-35.4); Mean Corpuscular Hemoglobin 32.7 pg (27.0-31.2); Mean Corpuscular Volume 97.9 fl (81-99); Mean Platelet Volume 7.8 fl (7.4-10.4); Monocytes # 0.4 K/mm3 (0.1-1.0); Neutrophils # 5.2 K/mm3 (1.8-7.8); Neutrophils % 67.5 % (37.0-80.0); Platelet Count 347 K/mm3 (142-424); Red Blood Count 4.35 M/mm3 (4.20-5.40); Red Cell Distribution Width 14.2 % (11.5-17.5); White Blood Count 7.7 K/mm3 (4.8-10.8)
--- NOTE | 2021-10-16 13:30 | XR_ITS ---
PROCEDURE INFORMATION: Exam: XR Chest Exam date and time: 10/16/2021 1:32 PM Age: 66 years old Clinical indication: Screening exam; Pre-operative exam; Other: Pre op exam TECHNIQUE: Imaging protocol: XR of the chest. Views: 2 views. COMPARISON: CR CXR2V XR chest 2V 11/18/2018 6:39 PM FINDINGS: Lungs: Hyperexpanded lung scott consistent with COPD Pleural spaces: Unremarkable. No pleural effusion. No pneumothorax. Heart/Mediastinum: Unremarkable. No cardiomegaly. Bones/joints: Unremarkable. IMPRESSION: Hyperexpanded lung scott consistent with COPD
[2021-10-16 13:58] LABS: Chloride 101 mmol/L (98-107); Potassium 4.8 mmoL/L (3.5-5.1); Sodium 140 mmol/L (136-145)
[2021-10-16 14:00] LABS: Blood Urea Nitrogen 13 mg/dl (7-17); Erythrocyte Sedimentation Rate 14 mm/hr (0-30)
[2021-10-16 14:01] LABS: Alanine Aminotransferase 25 U/L (12-78); Albumin/Globulin Ratio 1.7 (1.1-1.8); Alkaline Phosphatase 104 U/L (38-126); Anion Gap 11.8 mEq/L (5-15); Aspartate Amino Transferase 21 U/L (14-36); Bilirubin,Total 0.7 mg/dl (0.2-1.3); Carbon Dioxide 32 mmol/L (22.0-30.0); Estimated Glomerular Filt Rate 83 ml/min (>60); GFR (African American) 101 ML/MIN (>60); Globulin 2.4 g/dL (1.3-3.2); Total Protein,Serum 6.4 g/dl (6.3-8.2)
[2021-10-16 14:02] LABS: Glucose 124 mg/dl (74-100)
[2021-10-16 14:07] LABS: Appearance,Urine CLEAR (Clear); Bilirubin,Urine Negative (Negative); Blood, Urine TRACE-I (Negative); C-Reactive Protein 11.5 mg/L (0-4); Color,Urine YELLOW (Yellow); Glucose,Urine (UA) Negative (Negative); Ketones,Urine Negative (Negative); Leukocyte Esterase,Urine Negative (Negative); Nitrate,Urine Negative (Negative); PH,Urine 6.5 (5.0-8.5); Protein,Urine 1+ (Negative)
[2021-10-16 14:18] LABS: WBC,Urine Occasional #/hpf (0-3)
== END ==
PROVIDERS: PCP Internal Medicine; Visit Provider Orthopaedic Surgery
DX: M17.12 Unilateral primary osteoarthritis, left knee (principal); Z96.659 Presence of unspecified artificial knee joint; Z11.52 Encounter for screening for COVID-19
CPT/HCPCS: 36415; 71046; 80053; 81001; 85025; 85651; 86140; 86850; 93005; C9803; U0003; U0005

== ENCOUNTER → 2021-10-19 11:28 | Outpatient (CLI) | payer MEDICARE, OTHER, SELFPAY ==
--- NOTE | 2021-10-19 11:31 | CA_ITS ---
FINAL REPORT TECHNIQUE: Ultrasound images of the deep venous system were obtained from the left groin to the calf veins. CLINICAL HISTORY: LLE EDEMA,PAIN LT KNEE,PT UNABLE TO STRAIGHTEN LT KNEE FINDINGS: The deep venous system is normally compressible. Normal flow is identified. IMPRESSION: No evidence of left lower extremity DVT. Reviewed, Interpreted and Dictated by Shahbaz Lewis MD Transcribed by Stoney Sharif Authenticated by Shahbaz Lewis MD on 10/20/2021 10:12:21 AM [facility]
== END ==
PROVIDERS: PCP Internal Medicine; Visit Provider Internal Medicine
DX: M79.605 Pain in left leg (principal); M79.89 Other specified soft tissue disorders
CPT/HCPCS: 93971

== ENCOUNTER → 2021-10-25 12:53 | Outpatient (CLI) | payer MEDICARE, OTHER, SELFPAY ==
--- NOTE | 2021-10-25 12:56 | CT_ITS ---
FINAL REPORT CLINICAL HISTORY: LEG PAIN,SWELLING,EVALUATE FOR LYMPHATIC OBSTRUCTION LLE FINDINGS: Thin section axial CT images of the abdomen, pelvis and lower extremities were obtained with contrast. Multiplanar reformatted images were also obtained and reviewed. ABDOMEN AND PELVIS: There is no abdominal aortic aneurysm or dissection. There are moderate vascular calcifications. The celiac axis and proximal superior mesenteric artery are unremarkable. There is no renal artery stenosis. The inferior mesenteric artery is patent. Mild stenoses are seen of the iliac arteries bilaterally measuring less than 50%. RIGHT LOWER EXTREMITY: Right knee arthroplasty obscures detail at the level of the popliteal artery. There is no significant stenosis of the right common femoral or superficial femoral arteries. The right deep femoral artery is patent. The mid posterior tibial artery is occluded. Anterior tibial and peroneal arteries are patent to the distal lower leg. LEFT LOWER EXTREMITY: There is mild stenosis of the left superficial femoral artery. The left deep femoral artery is patent. The left popliteal artery is patent. There is three-vessel runoff to the distal lower leg. OTHER FINDINGS: There is subcutaneous edema of the left lower leg without focal venous abnormality. 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 Mild stenosis of the left superficial femoral artery. Mild stenosis of the bilateral iliac arteries, less than 50%. Subcutaneous edema of the left lower leg without focal venous abnormality. Reviewed, Interpreted and Dictated by Abisai Villanueva III, MD Transcribed by Ledy Landry Authenticated by Abisai Villanueva III, MD on 10/25/2021 03:18:[address] [facility]
== END ==
PROVIDERS: PCP Internal Medicine; Visit Provider Internal Medicine
DX: M79.89 Other specified soft tissue disorders (principal); M79.606 Pain in leg, unspecified
CPT/HCPCS: 75635; Q9967

== ENCOUNTER → 2021-10-27 15:15 | Outpatient (CLI) | payer MEDICARE, OTHER, SELFPAY ==
[2021-10-27 16:11] LABS: Basophils # 0.1 K/mm3 (0-0.2); Basophils % 1.2 % (0.1-2.0); Eosinophils # 0.3 K/mm3 (0.0-0.4); Eosinophils % 3.1 % (0.1-12.0); Hematocrit 46.2 % (37.0-47.0); Hemoglobin 14.9 g/dL (12.2-16.2); Lymphocytes # 2.2 K/mm3 (0.7-4.5); Lymphocytes % 26.5 % (10-50); Mean Corpuscular HGB Conc 32.2 g/dL (31.8-35.4); Mean Corpuscular Hemoglobin 32.4 pg (27.0-31.2); Mean Corpuscular Volume 100.4 fl (81-99); Monocytes # 0.5 K/mm3 (0.1-1.0); Monocytes % 6.2 % (1.7-9.3); Neutrophils # 5.1 K/mm3 (1.8-7.8); Neutrophils % 63.1 % (37.0-80.0); Platelet Count 383 K/mm3 (142-424); Red Cell Distribution Width 14.1 % (11.5-17.5); White Blood Count 8.1 K/mm3 (4.8-10.8)
[2021-10-27 17:03] LABS: C-Reactive Protein 6.7 mg/L (0-4)
[2021-10-27 17:18] LABS: Erythrocyte Sedimentation Rate 12 mm/hr (0-30)
== END ==
PROVIDERS: Visit Provider Orthopaedic Surgery
DX: M17.12 Unilateral primary osteoarthritis, left knee (principal); Z96.652 Presence of left artificial knee joint
CPT/HCPCS: 36415; 85025; 85651; 86140

== ENCOUNTER → 2021-10-30 10:17 | Outpatient (CLI) | payer MEDICARE, OTHER, SELFPAY | PROVIDERS: PCP Orthopaedic Surgery; Visit Provider Orthopaedic Surgery | DX: M25.562 Pain in left knee; Z01.812 Encounter for preprocedural laboratory examination; Z11.52 Encounter for screening for COVID-19 | CPT/HCPCS: 36415; 86850; C9803; U0003; U0005 ==

== ENCOUNTER 2021-11-01 12:08 | Observation (INO) | payer MEDICARE, OTHER, SELFPAY ==
[2021-10-14 11:57] VITALS: BMI 36.6
[2021-11-01] VITALS (19 sets, daily range): BP systolic 119–151; BP diastolic 52–85; PULSE 68–97; RESP 16–20; TEMP 36.4–43; O2SAT 90–98
--- NOTE | 2021-11-01 10:44 | P.PN_ITS ---
[facility] Anesthesia Checklist - Patient Identification Patient Identification: Arm Band - Structural Data Admitted From: Home Planned Operative Procedure/s: Left Total Knee Arthroplasty Consent for Planned Operative Procedure(s) Verified: Yes Verified Documents: Surgical Consent, History and Physical - NPO Status Verified Time NPO: 00:00 - Additional verifications Anesthesia Reactions: No Hx Blood Transfusions: No Blood Transfusion Reaction: No - Airway Assessment C-Spine Mobility Assessed: Yes (mp2) TMJ Mobility Assessed: Yes Dentition: Good Dentition - Neurological Assessment Level of Consciousness: Awake, Alert - Anesthesia Plan Anesthesia Risk discussed: Yes Anesthesia Plan: Verified ASA Class: III Anesthesia Type: MAC w/Spinal (with Adductor Canal Block) [facility] History I have reviewed the patient's past medical history: Yes Medical History: Reports:: Asthma, Chronic Obstructive Pulmonary Disease (COPD), Diabetes Mellitus Type 2, Gastroesophageal Reflux Disease(GERD), Hyperlipidemia, Hypertension Denies:: Cancer, Diabetes Mellitus Type 1, Internal Pacemaker, MRSA, Seizures *Have you ever received a pneumonia vaccine?: No *Have you received a flu vaccine this season?: Yes Other Medical History: Reports: Arthritis, Radiation Therapy. Denies: Blood Transfusion Reaction Anesthesia experience/problems:: nac Laterality Cases: Right: Total Knee Replacement, Bilateral: Tonsillectomy Other Surgeries: Yes: Colonoscopy, Hysterectomy-Total, Other (3 (L) eye biopsies). No: Pacemaker Amputation: No Fractures: No - *Social History Last grade of school completed: High school graduate Smoking Status: Current every day smoker Tobacco Type: cigarettes # Packs/Day (cigarettes): 1 Alcohol Intake: never Substance Use Type: denies use *Occupational Status:: retired Housing: house Household Members: spouse *Travel in the last 8 weeks: None Family Hx:: No significant family history
[2021-11-01 10:52] LABS: Coronavirus 19, PCR Not Detected (NotDetected); Influenza A, PCR Not Detected (NotDetected); Influenza B, PCR Not Detected (NotDetected)
--- NOTE | 2021-11-01 14:05 | SUR.OPER ---
1404-family updated at this time via SANCHEZ Fagan
--- NOTE | 2021-11-01 14:23 | SUR.OPER ---
1423-betadine soak/irrigation used at this time in wound per Dr. Moreno for 3 minutes
--- NOTE | 2021-11-01 15:29 | XR_ITS ---
FINAL REPORT CLINICAL HISTORY: s/p Lt TKA COMPARISON: September 07, 2021 FINDINGS: LEFT KNEE 3 views of the left knee were obtained. There has been interval placement of left knee total joint prosthesis. Antibiotic seed implants are present. There is some gas in the soft tissues which is consistent with recent surgery. IMPRESSION: Postoperative changes as described. Reviewed, Interpreted and Dictated by Shahbaz Lewis MD Transcribed by Robyn Reddy Authenticated by Shahbaz Lewis MD on 11/01/2021 04:32:55 PM [facility][1]
--- NOTE | 2021-11-01 15:43 | HMH.ANESI ---
[facility] Anesthesia Record Part I Intake, IV Amount: 1,300 Estimated blood loss (mL): 20 Urine output (mL): 450 Blood Pressure: 130/85 SaO2: 92 Pulse Rate: 93 Respiratory Rate: 16 Temperature: 97.5 F Patient is:: Drowsy, Stable Stable to PACU at:: 15:35
--- NOTE | 2021-11-01 16:16 | HMH.OPNOTE ---
Date of procedure: 11/01/21 Pre-op Diagnosis:: Advanced degenerative arthritis, left knee Post-op Diagnosis:: Same Procedure performed:: Uncemented total knee arthroplasty, left knee Surgeon:: Cuba Moreno MD Senior Financial Reporting Analyst(s):: Cathy Andrade PA-C MACHINE LACER:: Harpreet Ojeda Anesthesia: spinal, other (Adductor canal block) Estimated blood loss (mL): 20 Clinical Note:: Patient is a 66-year-old female with end-stage tricompartmental osteoarthritis and fech-hw-xgin changes over the medial compartment with a progressive varus deformity and flexion contracture of her left knee presented with unremitting severe pain not relieved by conservative management. The arthritic process and pain are advanced to the point that it is becoming a hazard for the patient with risk of falling and injuring herself. A total knee arthroplasty is indicated to relieve the pain, improve function, reduce the risk of falls and improve quality of life. Please refer to my office note for full details. Operative findings:: As noted on the preoperative evaluation, the knee joint has a fixed flexion of 10? with 5 degrees of fixed varus deformity. As seen on the x-rays, the medial and patellofemoral compartments are showing advanced degenerative changes with slga-to-[id number] appearance. The menisci and cruciate ligaments are significantly degenerate. There is osteophyte formation over all 3 compartments. Also, there is florid synovitis and a sample of synovial tissue was obtained for histopathology. Bone quality is good. Operative note:: On the day of the surgery the patient and her were seen in the preoperative area. I have again reviewed the clinical and x-ray findings and again discussed the diagnosis, natural history and management options in detail including both nonsurgical and surgical. Patient has end-stage degenerative arthritis of the left knee and has failed to respond satisfactorily to appropriate conservative management so far and has opted for a total knee arthroplasty. The left knee joint is stiff and painful, and is limiting mobility, ADLs and quality of life. Also the knee gives out and patient is at risk of falls resulting in fractures. I have again discussed the details of the procedure, risks and benefits and alternatives in detail. The complications discussed include but are not limited to infection, injury to nerves and blood vessels including injury to popliteal artery, injury to tendons and ligaments, DVT and PE, fat embolism, intraoperative fracture, limb length inequality, patella fracture, patellofemoral instability, patellar clunk syndrome, quadriceps and patellar tendon rupture, implant failure, component loosening, periprosthetic femur and tibia fractures, stiffness /arthrofibrosis, limp, incomplete relief of pain, incomplete functional recovery, likely need for further surgery in future including revision and anesthetic complications including heart attack, stroke and even . We also discussed about the likely need for blood transfusion and transfusion reactions. We discussed how any of these events can be devastating. We have discussed nonsurgical alternatives as well. Patient understands and wishes to proceed with a left total knee arthroplasty as planned and I believe that he is fully informed as to the risks, benefits, and alternatives including nonsurgical alternatives. We also discussed the postoperative course including the rehab and physical therapy required. A physical examination was performed and documented. Patient understood the risks, agreed to proceed with surgery, signed the consent form and no guarantees or assurances were given or implied. The limb was appropriately marked and initialed by me. The patient was then brought to the operating room and a spinal anesthesia was administered by the cashier self service gasoline. Patient also had adductor canal nerve block, performed by the cashier self service gasoline, in the OR at the end of the surgery. The patient was then posi
--- NOTE | 2021-11-01 16:28 | PC.NURSE ---
1544-radiology at bedside
--- NOTE | 2021-11-01 16:28 | HMH.ORTHHP ---
*Admission Date: 11/01/21 *Reason for consult:: s/p left total knee arthroplasty *History of present illness: Patient is a 66-year-old female admitted to the inpatient service today following an uneventful left total knee arthroplasty. She has had chronic left knee pain for many years which has significantly worsened over the past several months. She is known to have fairly advanced degenerative arthritis of her left knee. She was scheduled to have a left total knee arthroplasty a little over 1 year ago but it was postponed due to her uncontrolled diabetes. She reports significant knee pain that she rates a 10 out of 10 at its worst. She is mobilizing primarily using wheelchair with very limited amounts of ambulation at home as the pain is aggravated with weightbearing and walking on her left lower extremity. She has tried ice, elevation, Tylenol, ibuprofen, narcotic pain medications, intra-articular steroid injections, and viscosupplementation injections for her pain with little to no relief. She has lost range of motion and is not able to straighten out the knee due to the pain. She also reports significant night pain and frequent sleep disturbances. She previously had a right total knee arthroplasty performed by Dr. Samayoa in 2018. She reports that she is doing well with the right knee and reports no problem whatsoever. She denies any history of fevers, chills, rigors, or distal tingling/numbness. She reports frequent sensations of the left knee giving out, but states she has not had any falls. Her past medical history is significant for hypertension, hyperlipidemia, diabetes mellitus type 2, COPD, GERD, and arthritis. She is a chronic smoker. She denies any other symptoms or concerns at this time. [facility] History Medical History: Reports:: Asthma, Chronic Obstructive Pulmonary Disease (COPD), Diabetes Mellitus Type 2, Gastroesophageal Reflux Disease(GERD), Hyperlipidemia, Hypertension Denies:: Cancer, Diabetes Mellitus Type 1, Internal Pacemaker, MRSA, Seizures *Have you ever received a pneumonia vaccine?: No *Have you received a flu vaccine this season?: Yes Other Medical History: Reports: Arthritis, Radiation Therapy. Denies: Blood Transfusion Reaction Anesthesia experience/problems:: nac Laterality Cases: Right: Total Knee Replacement, Bilateral: Tonsillectomy Other Surgeries: Yes: Colonoscopy, Hysterectomy-Total, Other (3 (L) eye biopsies). No: Pacemaker Amputation: No Fractures: No - *Social History Last grade of school completed: High school graduate Smoking Status: Current every day smoker Tobacco Type: cigarettes # Packs/Day (cigarettes): 1 Alcohol Intake: never Substance Use Type: denies use *Occupational Status:: retired Housing: house Household Members: spouse *Travel in the last 8 weeks: None Family Hx:: No significant family history Review of Systems - Review of Systems Review of systems:: pertinent systems reviewed and negative unless documented below - Constitutional Denies anorexia, Denies body ache(s), Denies chills, Denies fatigue, Denies fever(s), Denies headache(s), Denies weakness - Eyes Denies blind spots, Denies blurry vision, Denies change in vision, Denies double vision - ENT Denies poor balance, Denies dizziness, Denies nasal congestion, Denies neck pain, Denies sore throat - *Cardiovascular Denies chest pain, Denies chest pain at rest, Denies shortness of breath, Denies shortness of breath with activity, Denies generalized swelling - *Respiratory Denies chest congestion, Denies cough, Denies shortness of breath, Denies pain on inspiration - *Gastrointestinal Denies abdominal pain, Denies constipation, Denies loose stools, Denies black, tarry stools, Denies nausea, Denies vomiting - *Genitourinary Denies difficulty urinating, Denies urinary incontinence, Denies urinary urgency - *Musculoskeletal Reports abnormal walking, Reports joint pain, Reports limited joint movement, Denies muscle weakness, Denie
--- NOTE | 2021-11-01 16:39 | PC.NURSE ---
1603-detailed report called to Nora,RN 1605-pt transported to OB room 280 as overflow med/surg, left in care of Moiz RN with bed locked in lowest position, detailed report given at bedside, vss, pt stable
[2021-11-01 17:06] LABS: Appearance,Urine/Cath CLEAR (Clear); Bilirubin,Cath Negative (Negative); Blood, Urine/Cath Negative (Negative); Color,Urine/Cath YELLOW (Yellow); Glucose,Urine/Cath (UA) Negative (Negative); Ketones,Urine/Cath Negative (Negative); Leukocyte Esterase,Cath Negative (Negative); Nitrate,Cath Negative (Negative); PH,Urine/Cath 5.5 (5.0-8.5); Protein,Urine/Cath Negative (Negative); Specific Gravity, Urine/Cath 1.015 (1.005-1.030); Urobilinogen,Cath 0.2 EU/dl (0.2)
[2021-11-01 17:41] LABS: Microscopic,Cath URINE MICROSCOPIC (MICROSCOPIC); Other Sediment,Urine 1 #/Hpf; Squamous Epithelial Ur./Cath Occasional #/hpf (0-5); WBC,Urine/Cath Occasional #/hpf (0-3)
--- NOTE | 2021-11-01 18:57 | PC.NURSE ---
1615 2L NC applied, SaO2 increased to mid 90s. Continuous pulse ox in use.
--- NOTE | 2021-11-01 19:37 | PC.NURSE ---
SaO2 86% on room air, 2L O2 applied via NC with SaO2 at 95%.
[2021-11-02 03:48] VITALS: BP 156/69; PULSE 101; RESP 17; TEMP 37; O2SAT 96
--- NOTE | 2021-11-02 04:38 | PC.NURSE ---
PT HAS SLEPT OFF AND ON THROUGHOUT THE NIGHT,MEDICATED A COUPLE TIMES,LUNGS-EXPIRATORY WHEEZING NOTED,PT HAS BEEN USING HER INCENTIVE SPIROMETER WHILE SHE WAS AWAKE,PT FEELS A LITTLE SWEATY THIS MORNING,SHE SAID SHE WAS HOT EARLIER AND STAFF HAD TURNED THERMOSTAT DOWN.KNEE MOBILIZER REMAINS ON LEFT KNEE WITH POLAR PACK IN PLACE,LEG ELEVATED ON PILLOW AT THE ANKLE.F/C PATENT AND DRAINING CLEAR YELLOW URINE
[2021-11-02 06:10] VITALS: O2SAT 97
--- NOTE | 2021-11-02 07:29 | HMH.PHAVTE ---
[facility] Pharmacy VTE Monitoring - Patient Demographics Admission date: 11/01/21 Report Date: 11/02/21 Time: 07:29 Allergies/Adverse Reactions: Patient Allergies No Known Allergies Allergy (Verified 11/01/21 10:12) Height: 1.57 m Weight: 90.718 kg Patient Problems: Current Active Problems S/P total knee arthroplasty (Acute) - Prophylaxis VTE Prophylaxis Ordered?: Yes Types of VTE Prophylaxis: IPCS Thigh High Location of Applied Device: Bilateral Lower Extremeties
[2021-11-02 08:00] VITALS: BP 148/73; PULSE 91; RESP 20; TEMP 37; O2SAT 96
[2021-11-02 08:04] LABS: Basophils # 0.1 K/mm3 (0-0.2); Basophils % 0.8 % (0.1-2.0); Eosinophils # 0.1 K/mm3 (0.0-0.4); Eosinophils % 0.5 % (0.1-12.0); Hematocrit 40.4 % (37.0-47.0); Hemoglobin 13.3 g/dL (12.2-16.2); Lymphocytes # 1.1 K/mm3 (0.7-4.5); Lymphocytes % 11.4 % (10-50); Mean Corpuscular HGB Conc 32.9 g/dL (31.8-35.4); Mean Corpuscular Hemoglobin 32.4 pg (27.0-31.2); Mean Corpuscular Volume 98.3 fl (81-99); Mean Platelet Volume 7.4 fl (7.4-10.4); Monocytes # 0.7 K/mm3 (0.1-1.0); Monocytes % 7.3 % (1.7-9.3); Neutrophils # 7.3 K/mm3 (1.8-7.8); Neutrophils % 79.9 % (37.0-80.0); Platelet Count 287 K/mm3 (142-424); Red Blood Count 4.11 M/mm3 (4.20-5.40); Red Cell Distribution Width 14.1 % (11.5-17.5); White Blood Count 9.2 K/mm3 (4.8-10.8)
[2021-11-02 08:06] LABS: Chloride 97 mmol/L (98-107); Sodium 131 mmol/L (136-145)
[2021-11-02 08:07] LABS: Potassium 4.8 mmoL/L (3.5-5.1)
[2021-11-02 08:10] LABS: Anion Gap 8.8 mEq/L (5-15); Blood Urea Nitrogen 9 mg/dl (7-17); Calcium 9.4 mg/dl (8.4-10.2); Carbon Dioxide 30 mmol/L (22.0-30.0); Creatinine Clearance Estimated 77 mL/min (50-200); Estimated Glomerular Filt Rate 83 ml/min (>60); GFR (African American) 101 ML/MIN (>60); Glucose 201 mg/dl (74-100)
--- NOTE | 2021-11-02 10:19 | HMH.PTEV ---
Physical Therapy Evaluation Rehab PT IP Evaluation Start: 11/01/21 15:38 Freq: ONCE Status: Active Protocol: Document 11/02/21 10:16 NIKOLAY (Rec: 11/02/21 10:19 [email or web address] [id number]) Subjective/History History History This is the initial IP PT evaluation for Liliana Adams. Pt is a 66 y/o female admitted to [facility] s/p L TKA. Subjective Subjective Pt reports her knee is sore and stiff Rehab PT IP Eval Objective Appearance Patient Behavior Appropriate Patient Orientation Place,Name,Birthday,Year Difficulty following instructions none Speech Pattern Clear,Appropriate Ambulation Patient Able to Ambulate Yes Ambulation Observation IP General Gait Pattern Observation Antalgic Gait,Decrease Weight Bear (L) Ambulation Distance (feet) 5 Ambulation Assistive Device None Ambulation Ability Minimal x 1 (25% assist) Balance Ability to Arise Able, uses arms to help Sitting Balance Steady, safe Standing Balance Steady, wide stance Dynamic Sitting Balance Ability Normal Dynamic Standing Balance Ability Fair Transfers Bed Transfer Ability Supervision/Stand by Chair Transfer Ability Supervision/Stand by Sit to Stand Bed Transfer Ability Contact Guard/Hand Hold Sit to Stand Chair Transfer Ability Contact Guard/Hand Hold Rehab PT IP prob,goals,plan Problems Date of Evaluation: 11/02/21 PT IP Problems Transfers,Gait,Balance,Self care,Safety Rehab Potential Rehab Potential Good Equipment Needs Assistive Devices Rolling / Wheeled Walker Plan PT Intervention Plan Transfers,Gait,Balance,Self care,Safety,Therapeutic Exercise PT Plan Frequency BID Duration LOS Discharge Goals Sit to Stand Chair Transfer Ability Contact Guard/Hand Hold Ambulation Assistive Device Rolling Walker Ambulation Distance (feet) 25 Discharge Plan PT Discharge Plan Pt will benefit from skilled therapy while at [facility]. Upon DC pt will continue to benefit from skilled therapy either from HHPT or OP PT. Pt's has requested HHPT due to travel difficulty for pt. G -code Required Yes Eval Complexity Eval Charge Codes 38774 - Moderate Complexity G Codes PT Current Status Mobility PT
--- NOTE | 2021-11-02 10:24 | HMH.ORTHPN ---
Subjective Date: 11/02/21 Time: 08:45 Principal diagnosis: S/p left total knee arthroplasty Interval history: Patient is a 66-year-old female admitted to the inpatient service yesterday 11/01/2021 following an uneventful left total knee arthroplasty. Today she is postop day #1. This morning the patient is lying comfortably in bed and her friend is present at the bedside. She states that she was able to get some rest last night and is eating and drinking well. She denies any episodes of nausea or vomiting. She reports some soreness/pain in her left knee as to be expected at this stage but states that it is well controlled with as needed pain medication. She has not yet ambulated. She denies any history of fevers, chills, rigors, or distal tingling/numbness. She denies any other symptoms or concerns at this time. PN: Obj Ex Vital signs: Temp Pulse Resp BP Pulse Ox 98.6 F 101 H 17 156/69 H 97 11/02/21 03:48 11/02/21 03:48 11/02/21 03:48 11/02/21 03:48 11/02/21 06:10 - Constitutional no acute distress, cooperative - Routine HEENT Exam Head: Present: normocephalic, atraumatic Eye: Present: EOMI, PERRL ENT: Present: mucous membranes moist - Routine Neck Exam Present: supple, full ROM, trachea midline. Absent: JVD, lymphadenopathy - Routine Respiratory Exam Absent: accessory muscle use, respiratory distress Comments: Symmetric chest movement, able to speak complete sentences - Routine Cardiovascular Exam Present: RRR. Absent: JVD Comments: Normal peripheral pulses - Routine Abdominal Exam Present: soft. Absent: tenderness - Routine Extremities Exam Present: pulses intact, normal capillary refill. Absent: calf tenderness Comments: Upon examination of the lower extremities: The limb lengths are equal. Dressings present over the left knee are clean, dry, and intact. No evidence of drainage or bleeding noted. Attempted movements of the left knee are somewhat painful. Thigh and calf are soft and nontender; Homans' sign is negative. No clinical evidence of DVT noted. Posterior tibial pulse 1+; capillary refill is brisk. Sensation to light touch is grossly intact throughout. Patient is actively mobilizing the foot, ankle, and toes. - Routine Skin Exam Present: intact, warm, normal turgor. Absent: cyanosis, erythema, lesions, jaundice - Routine Neurological Exam Present: alert, oriented X3, CN II-XII intact, moving all extremities, normal tone, normal speech. Absent: sensory deficit, motor deficit, altered mental status - Routine Psychiatric Exam Present: normal affect, cooperative - Urinary Catheter Management Travis Cath placed during this visit: no Urethral indwelling: Yes Progress Note: A&P (1) S/P total knee arthroplasty Status: Acute Assessment and Plan for All Diagnoses:: I have discussed the clinical findings and progress with the patient and her friend. Overall she is doing well from an orthopedic standpoint this morning and denies any specific concerns or complaints at this time. Plan to begin PT/OT today; patient may ambulate with weightbearing as tolerated on the left lower extremity with the use of the knee immobilizer when weightbearing/ambulating until she has regained full quadriceps control and is able to actively straight leg raise. Discontinue IV fluids and urinary catheter today as patient is eating and drinking well. Continue rest, ice, elevation, and as needed pain medication. I have again advised the patient to avoid placing a pillow behind the knee. Continue DVT prophylaxis as ordered. Case management team coordinating discharge planning; at this time the patient has expressed a desire to return home upon discharge. All questions were answered and the patient and her friend verbalized a good understanding. Continue home medications as ordered.
--- NOTE | 2021-11-02 10:46 | HMH.OTEV ---
OT Inpatient Evaluation Rehab OT IP Evaluation Start: 11/01/21 15:38 Freq: ONCE Status: Complete Protocol: Document 11/02/21 10:[address] [facility] (Rec: 11/02/21 10:[address] [facility] [id number]) Rehab OT IP Assessment Subjective History Pt oriented x 3 on arrival. Pt agreeable to engage in therapy evaluation. Pt was admitted on 11/01/21 following a L knee TKA. Pt reports prior to surgery she lived at home with her . Pt claims she was independent with ADLs, but did require assistance from with IADLs. Up until surgery, pt was using wheelchair at times due to pain while ambulating. However, she was able to transfer herself independently from surface to surface and stand independently. Subjective I want to go home. Pt resting in bed on arrival. pt completed bed mobility and went from supine to sitting at eob with min assist. Pt stood from eob with min assist . Pt sat back down at eob with min assist. Pt completed bed mobility and went from sitting to supine with min assist (left leg). Pt was left with call gomez and all other needs in reach. Objective Patient Orientation Person,Place,Birthday Upper Extremity Gross ROM WFL Bed Mobility bed mobility-scooting,bed mobility - supine/sit,bed mobility - rolling Assist Level Minimal x 1 (25% assist) Rehab OT IP prob,goals,plan Problems Date of Evaluation: 11/02/21 OT IP Problems Bed Mobility,Transfers,Gait, Balance,Self care,Safety Rehab Potential Rehab Potential Good Equipment Needs Assistive Devices Rolling / Wheeled Walker Plan OT intervention Plan Bed Mobility,Transfers,Gait, Balance,Self care,Safety, Therapeutic Exercise OT Plan Frequency BID Duration LOS Discharge Goals Bed Mobility Ability
--- NOTE | 2021-11-02 11:08 | HMH.PHAINT ---
MEDICATION RECONCILIATION COMPLETED ON PATIENT USING EXTERNAL FILL HISTORY FROM PHARMACY. -RALEIGH CESAR, CHRISTIED
--- NOTE | 2021-11-02 11:09 | SW/DCPLANNER ---
Addendum entered by Nataliia Dailey 11/02/21 15:15: Phillip pugh/ [facility] stated that services will begin tomorrow. Addendum entered by Nataliia Dailey 11/02/21 14:35: The plan is for this patient to discharge home today. Patient information/order has been faxed to [facility] at this time. Original Note: I spoke with this patient regarding plans once medically stable for discharge. Patient stated that she resides at home with her and plans to return back home once medically stable for discharge. Patient stated that she would rather discharge home with home health services and prefers [facility] at this time. Patient information/order will be faxed to [facility] at time of discharge. Patient also stated that she has the following DME at home: walker, rollator and bedside commode. Patient could potentially discharge later today or tomorrow. I will continue to follow up with this patient.
[2021-11-02 12:00] VITALS: BP 155/73; PULSE 87; RESP 18; TEMP 36.5; O2SAT 92
--- NOTE | 2021-11-02 13:18 | P.PN_ITS ---
[facility] Anesthesia Record Part II Discharge Time: 16:05 Destination: Surgical Day Care (OP Surgery) PACU nurse assessment reviewed?: Yes Patient Condition:: Good Anesthesia Complications:: None Swallowing reflex intact?: Yes Cyanosis?: No Blood Pressure: 125/63 Pulse Rate: 88 Temperature: 98.2 F Mental Status: Alert & Oriented Pain level:: 0 Nausea and/or vomitting:: None Intake, IV Amount: 0
[2021-11-02 13:19] VITALS: BP 125/63; PULSE 88; TEMP 36.8
--- NOTE | 2021-11-02 14:27 | HMH.DCSUM ---
General - General Admission date:: 11/01/21 <Cathy Andrade - 11/02/21 14:27> Discharge date: 11/02/21 <Andrade,Cathy - 11/02/21 14:27> HPI HPI: Patient is a 66-year-old female admitted to the inpatient service today following an uneventful left total knee arthroplasty. She has had chronic left knee pain for many years which has significantly worsened over the past several months. She is known to have fairly advanced degenerative arthritis of her left knee. She was scheduled to have a left total knee arthroplasty a little over 1 year ago but it was postponed due to her uncontrolled diabetes. She reports significant knee pain that she rates a 10 out of 10 at its worst. She is mobilizing primarily using wheelchair with very limited amounts of ambulation at home as the pain is aggravated with weightbearing and walking on her left lower extremity. She has tried ice, elevation, Tylenol, ibuprofen, narcotic pain medications, intra-articular steroid injections, and viscosupplementation injections for her pain with little to no relief. She has lost range of motion and is not able to straighten out the knee due to the pain. She also reports significant night pain and frequent sleep disturbances. She previously had a right total knee arthroplasty performed by Dr. Samayoa in 2018. She reports that she is doing well with the right knee and reports no problem whatsoever. She denies any history of fevers, chills, rigors, or distal tingling/numbness. She reports frequent sensations of the left knee giving out, but states she has not had any falls. Her past medical history is significant for hypertension, hyperlipidemia, diabetes mellitus type 2, COPD, GERD, and arthritis. She is a chronic smoker. She denies any other symptoms or concerns at this time. <Cathy Andrade - 11/02/21 14:28> Hospital Course Hospital Course: Following an uncomplicated primary left total knee arthroplasty the patient was admitted to the inpatient service and has progressed well. Her postoperative check x-ray was satisfactory with good alignment and fixation of the orthopedic components. She was advised to ambulate weightbearing as tolerated on her left side using a knee immobilizer when weightbearing/ambulating until she is able to actively straight leg raise and has regained full quadriceps control. She has managed this very well. Her pain is well controlled with oral pain medication. Distal neurovascular status is intact and there is no clinical evidence of DVT. She is eating and drinking well without any difficulty. Patient is medically stable at the time of discharge and was cleared for discharge by Dr. Moreno and by physical therapy. Her surgical dressings were changed on the first postoperative day and the surgical incision is healthy and healing well. No evidence of erythema, induration, bleeding, discharge, or other signs of infection. She was started on 325 mg of aspirin p.o. daily for DVT prophylaxis after surgery. On the day of discharge, the patient is afebrile. Her vital signs have been stable throughout her admission. She is being discharged home with home health services. <Cathy Andrade - 11/02/21 14:36> Objective Vital signs: Temp Pulse Resp BP Pulse Ox 98.2 F 88 18 125/63 92 L 11/02/21 13:19 11/02/21 13:19 11/02/21 12:00 11/02/21 13:19 11/02/21 12:00 <Cuba Moreno - 11/02/21 17:01> Temp Pulse Resp BP Pulse Ox 98.2 F 88 20 125/63 96 11/02/21 13:19 11/02/21 13:19 11/02/21 08:00 11/02/21 13:19 11/02/21 08:00 <Cathy Andrade - 11/02/21 14:27> no acute distress, cooperative <Cathy Andrade 11/02/21 14:36> - *Routine HEENT Exam Head: Present: normocephalic, atraumatic <Cathy Andrade 11/02/21 14:36> Eye: Present: EOMI, PERRL <Cathy Andrade 11/02/21 14:36> ENT: Present: mucous membranes moist <Cathy Andrade 11/02/21 14:36> - *Routine Neck Exam Present: supple,
--- NOTE | 2021-11-02 16:24 | HMH.PHAINT ---
DISCHARGE MEDICATION COUNSELING PROVIDED. DISCUSSED THE ASPIRIN (BLEED/BRUISING RISK), DOCUSATE ( NEEDED FOR CONSTIPATION), AND NORCO (UPSET STOMACH, ONLY TAKE NEEDED, SEDATION RISK, DO NOT DRIVE) PRESCRIPTIONS. PATIENT ENDORSED NO QUESTIONS AT THIS TIME.
--- NOTE | 2021-11-02 16:30 | PC.NURSE ---
Discharge education provided, Questions encouraged and answered. Pt. v/u.
--- NOTE | 2021-11-02 16:50 | PC.NURSE ---
All care and documentation by BLELE under my direct supervision.
--- NOTE | 2021-11-02 16:55 | PC.NURSE ---
Pt. left unit via wheelchair, to private vehicle. Pt. accompanied by staff x1 and S.O.
--- NOTE | 2021-11-03 15:06 | CARE MANAGER ---
Contacted patient related to follow up from hospital discharge. Patient states the home health just left and she is doing well. She was able to get her medications and didn't have any issues or questions. SANCHEZ Neff
[2022-04-07 10:59] LABS: POC Glucose,Bedside 144 (70-110)
== END 2021-11-02 16:55 | disposition home health service (06) ==
LOC: OB 12:10
PROVIDERS: Physician Assistant Surgical; Admitting Provider Orthopaedic Surgery; PCP Internal Medicine; Visit Provider Orthopaedic Surgery
PROC: (CPT 27447; principal; 2021-11-01 11:00)
DX: M17.12 Unilateral primary osteoarthritis, left knee (principal); M25.562 Pain in left knee; G89.29 Other chronic pain; F17.210 Nicotine dependence, cigarettes, uncomplicated; E11.9 Type 2 diabetes mellitus without complications; K21.9 Gastro-esophageal reflux disease without esophagitis; I10 Essential (primary) hypertension; E78.5 Hyperlipidemia, unspecified; Z79.84 Long term (current) use of oral hypoglycemic drugs; Z79.899 Other long term (current) drug therapy; Z20.822 Contact with and (suspected) exposure to COVID-19
CPT/HCPCS: 27447; G0378; 73562; 80048; 81001; 82962; 85025; 88305; 94640; 94760; 94761; 96374; 97110; 97116; 97162; 97166; 97530; C1713; C1776; C9803; J2405; J2704; J3370; U0003; U0005

== ENCOUNTER → 2021-11-16 13:46 | Outpatient (CLI) | payer MEDICARE, OTHER, SELFPAY ==
--- NOTE | 2021-11-16 13:49 | XR_ITS ---
FINAL REPORT CLINICAL HISTORY: 2 WEEKS post-op TKA COMPARISON: 11/01/2021 FINDINGS: LEFT KNEE Three views were obtained. There is no acute fracture or dislocation. The patient is status post knee arthroplasty. There has been interval resolution in the soft tissue air. There has been either removal or partial absorption of some of the antibiotic beads. There are persistent radiodensities in the anterior soft tissues, likely residual antibiotic beads or dystrophic calcification. IMPRESSION: Interval resolution of the soft tissue air. Reviewed, Interpreted and Dictated by Abisai Villanueva III, MD Transcribed by Latoya Schwarz Authenticated by Abisai Villanueva III, MD on 11/16/2021 03:56:11 PM [facility]
== END ==
PROVIDERS: PCP Internal Medicine; Visit Provider Physician Assistant Surgical
DX: M25.562 Pain in left knee; Z96.652 Presence of left artificial knee joint
CPT/HCPCS: 73562

== ENCOUNTER → 2021-11-22 14:55 | Outpatient (CLI) | payer MEDICARE, OTHER, SELFPAY ==
--- NOTE | 2021-11-22 15:03 | XR_ITS ---
FINAL REPORT CLINICAL HISTORY: lt knee injury COMPARISON: November 16, 2021 FINDINGS: Two views of the left knee were obtained. There is no evidence of fracture or dislocation. There are postoperative changes from knee arthroplasty. Bony alignment is stable. There is no evidence of joint effusion. There are multiple soft tissue calcifications. IMPRESSION: Stable postoperative changes as above. Reviewed, Interpreted and Dictated by Abisai Villanueva III, MD Transcribed by Mili Dominguez Authenticated by Abisai Villanueva III, MD on 11/22/2021 04:37:59 PM [facility]
== END ==
PROVIDERS: PCP Internal Medicine; Visit Provider Physician Assistant Surgical
DX: M25.562 Pain in left knee; Z96.652 Presence of left artificial knee joint
CPT/HCPCS: 73560

== ENCOUNTER → 2021-12-07 14:22 | Outpatient (CLI) | payer MEDICARE, OTHER, SELFPAY ==
--- NOTE | 2021-12-07 | CA_ITS ---
FINAL REPORT TECHNIQUE: Color Doppler, duplex Doppler and compression sonography of the left lower extremity deep venous systems was performed. CLINICAL HISTORY: .S/p Lt knee surgery, Redness and swelling FINDINGS: There is no evidence of deep venous thrombosis from the level of the groin to the calf. The veins are patent and compressible. IMPRESSION: No evidence of deep venous thrombosis left lower extremity. Reviewed, Interpreted and Dictated by Abisai Villanueva III, MD Transcribed by Latoya Schwarz Authenticated by Abisai Villanueva III, MD on 12/07/2021 03:48:38 PM [facility]
[2021-12-07 15:36] LABS: Hematocrit 41.1 % (37.0-47.0); Hemoglobin 13.5 g/dL (12.2-16.2); Lymphocytes % 18.8 % (10-50); Mean Corpuscular Hemoglobin 32.5 pg (27.0-31.2); Mean Corpuscular Volume 98.4 fl (81-99); Mean Platelet Volume 7.5 fl (7.4-10.4); Neutrophils % 70.7 % (37.0-80.0); Platelet Count 397 K/mm3 (142-424); Red Blood Count 4.17 M/mm3 (4.20-5.40); Red Cell Distribution Width 14.8 % (11.5-17.5); White Blood Count 10.6 K/mm3 (4.8-10.8)
[2021-12-07 15:37] LABS: Basophils # 0.2 K/mm3 (0-0.2); Basophils % 2.1 % (0.1-2.0); Eosinophils # 0.4 K/mm3 (0.0-0.4); Eosinophils % 3.5 % (0.1-12.0); Monocytes # 0.5 K/mm3 (0.1-1.0); Neutrophils # 7.5 K/mm3 (1.8-7.8)
[2021-12-07 16:42] LABS: C-Reactive Protein 3.9 mg/L (0-4)
[2021-12-07 19:46] LABS: Erythrocyte Sedimentation Rate 19 mm/hr (0-30)
== END ==
PROVIDERS: PCP Internal Medicine; Visit Provider Physician Assistant Surgical
DX: G89.18 Other acute postprocedural pain (principal); M79.605 Pain in left leg; Z96.652 Presence of left artificial knee joint; R60.0 Localized edema
CPT/HCPCS: 36415; 85025; 85651; 86140; 93971

== ENCOUNTER → 2021-12-27 13:24 | Outpatient (CLI) | payer MEDICARE, OTHER, SELFPAY ==
--- NOTE | 2021-12-27 13:35 | XR_ITS ---
FINAL REPORT CLINICAL HISTORY: s/p TKA on 10/30/2021 COMPARISON: November 22, 2021 FINDINGS: LEFT KNEE: Three views of the left knee were obtained. There are postoperative changes from knee arthroplasty. There are multiple soft tissue calcifications anteriorly on the lateral view. There is a calcification that has moved proximally since the prior exam which is worrisome for an avulsion fracture of the superior pole of the patella. IMPRESSION: Findings worrisome for an avulsion fracture of the superior pole of the patella. Reviewed, Interpreted and Dictated by Abisai Villanueva III, MD Transcribed by Robyn Reddy Authenticated and [facility]
[2021-12-27 13:57] LABS: Basophils # 0.2 K/mm3 (0-0.2); Basophils % 1.7 % (0.1-2.0); Eosinophils # 0.4 K/mm3 (0.0-0.4); Eosinophils % 4.6 % (0.1-12.0); Hematocrit 42.2 % (37.0-47.0); Hemoglobin 13.9 g/dL (12.2-16.2); Lymphocytes # 2.2 K/mm3 (0.7-4.5); Lymphocytes % 23.6 % (10-50); Mean Corpuscular HGB Conc 32.9 g/dL (31.8-35.4); Mean Corpuscular Hemoglobin 32.4 pg (27.0-31.2); Mean Corpuscular Volume 98.4 fl (81-99); Mean Platelet Volume 7.1 fl (7.4-10.4); Monocytes # 0.6 K/mm3 (0.1-1.0); Monocytes % 5.8 % (1.7-9.3); Neutrophils # 6.1 K/mm3 (1.8-7.8); Neutrophils % 64.3 % (37.0-80.0); Platelet Count 406 K/mm3 (142-424); Red Blood Count 4.29 M/mm3 (4.20-5.40); Red Cell Distribution Width 14.7 % (11.5-17.5); White Blood Count 9.5 K/mm3 (4.8-10.8)
[2021-12-27 14:28] LABS: Erythrocyte Sedimentation Rate 14 mm/hr (0-30)
[2021-12-27 14:37] LABS: C-Reactive Protein 3.5 mg/L (0-4)
== END ==
PROVIDERS: PCP Internal Medicine; Visit Provider Physician Assistant Surgical
DX: M25.562 Pain in left knee; Z96.652 Presence of left artificial knee joint
CPT/HCPCS: 36415; 73562; 85025; 85651; 86140

== ENCOUNTER → 2021-12-31 15:10 | Outpatient (CLI) | payer MEDICARE, OTHER, SELFPAY ==
--- NOTE | 2021-12-31 15:10 | MR_ITS ---
FINAL REPORT CLINICAL HISTORY: knee pain. partial knee replacement x8wks ago. 4 weeks ago heard a pop in knee. entire knee pain. patient was in pain. sent over best images. FINDINGS: Multiplanar MR imaging of the right knee was performed without contrast. There are postoperative changes from knee arthroplasty the causing magnetic susceptibility which obscures much of the detail. There appears to be a high-grade partial versus complete tear of the distal quadriceps tendon. There is patellar tendinitis without evidence of tear. There is circumferential subcutaneous edema. IMPRESSION: Knee arthroplasty limits evaluation. High-grade partial versus complete tear of the distal quadriceps tendon. Patellar tendinitis without tear. Circumferential subcutaneous edema. Reviewed, Interpreted and Dictated by Abisai Villanueva III, MD Transcribed by Stoney Sharif Authenticated and [facility]
== END ==
PROVIDERS: PCP Internal Medicine; Visit Provider Orthopaedic Surgery
DX: M25.562 Pain in left knee; Z96.652 Presence of left artificial knee joint
CPT/HCPCS: 73721

== ENCOUNTER → 2022-01-19 13:23 | Outpatient (CLI) | payer MEDICARE, OTHER, SELFPAY ==
[2022-01-19 14:03] LABS: Alanine Aminotransferase 21 U/L (12-78); Albumin Level 3.8 g/dl (3.5-5.0); Albumin/Globulin Ratio 1.4 (1.1-1.8); Alkaline Phosphatase 105 U/L (38-126); Anion Gap 12.5 mEq/L (5-15); Aspartate Amino Transferase 21 U/L (14-36); Bilirubin,Total 0.4 mg/dl (0.2-1.3); Blood Urea Nitrogen 14 mg/dl (7-17); Calcium 9.5 mg/dl (8.4-10.2); Carbon Dioxide 28 mmol/L (22.0-30.0); Chloride 101 mmol/L (98-107); Chol/HDL Ratio 4.1 (1-3.5); Cholesterol 134 mg/dl (140-200); Estimated Glomerular Filt Rate 83 ml/min (>60); GFR (African American) 100 ML/MIN (>60); Globulin 2.7 g/dL (1.3-3.2); Glucose 156 mg/dl (74-100); HDL Cholesterol 33 mg/dl (40-60); Potassium 4.5 mmoL/L (3.5-5.1); Sodium 137 mmol/L (136-145); Total Protein,Serum 6.5 g/dl (6.3-8.2); Triglycerides 169 mg/dl (30-150); VLDL Cholesterol 34 mg/dL (0-40)
[2022-01-19 14:04] LABS: Basophils # 0.1 K/mm3 (0-0.2); Eosinophils # 0.3 K/mm3 (0.0-0.4); Hematocrit 42.6 % (37.0-47.0); Hemoglobin 13.3 g/dL (12.2-16.2); Lymphocytes # 1.8 K/mm3 (0.7-4.5); Mean Corpuscular HGB Conc 31.2 g/dL (31.8-35.4); Mean Corpuscular Hemoglobin 31.7 pg (27.0-31.2); Mean Corpuscular Volume 101.6 fl (81-99); Mean Platelet Volume 8.5 fl (7.4-10.4); Monocytes # 0.7 K/mm3 (0.1-1.0); Neutrophils # 5.6 K/mm3 (1.8-7.8); Neutrophils % 65.9 % (37.0-80.0); Platelet Count 399 K/mm3 (142-424); Red Blood Count 4.19 M/mm3 (4.20-5.40); Red Cell Distribution Width 14.7 % (11.5-17.5); White Blood Count 8.5 K/mm3 (4.8-10.8)
[2022-01-19 14:15] LABS: Direct LDL Cholesterol 78.16 mg/dL (100-129)
[2022-01-19 14:59] LABS: Hemoglobin A1C 6.6 % (4.0-6.0)
== END ==
PROVIDERS: PCP Internal Medicine; Visit Provider Internal Medicine
DX: E11.9 Type 2 diabetes mellitus without complications (principal); E78.5 Hyperlipidemia, unspecified; I10 Essential (primary) hypertension; J44.9 Chronic obstructive pulmonary disease, unspecified; R60.0 Localized edema; F17.209 Nicotine dependence, unspecified, with unspecified nicotine-induced disorders; Z79.84 Long term (current) use of oral hypoglycemic drugs
CPT/HCPCS: 80053; 80061; 83036; 85025

== ENCOUNTER → 2022-01-25 11:36 | Outpatient (CLI) | payer MEDICARE, OTHER, SELFPAY ==
[2022-01-25 12:16] LABS: Reticulocyte % (Auto) 1.6 % (0.9-3.2)
[2022-01-25 14:36] LABS: Vitamin B12 213 pg/mL (239-931)
== END ==
PROVIDERS: PCP Internal Medicine; Visit Provider Internal Medicine
DX: D75.89 Other specified diseases of blood and blood-forming organs (principal)
CPT/HCPCS: 36415; 82607; 82746; 85044

== ENCOUNTER 2022-03-07 11:00 | Outpatient (RCR) | payer MEDICARE, OTHER, SELFPAY ==
--- NOTE | 2022-01-04 14:45 | HMH.PTOPWND ---
Rehab Outpt Wound Evaluation Rehab OP Wound Evaluation Start: 01/04/22 14:06 Freq: Status: Active Protocol: Document 01/04/22 14:39 BOB (Rec: 01/04/22 14:45 PHORNE [id number]) Electronically Signed By David Castellanos, PT 01/04/22 14:39 Subjective/History History History Pt is 66 yowf who presents with L LE edema x ~ 2 mos S/P L TKA performed 11/01/21. She reports her leg has remained tender in the lower leg and ankle as well. She also reports ~ 1 mo ago she was reaching over her bed when she felt a pop in her knee with immediate pain. X-ray and MRI were performed and show possible quad tendon tear vs patella avulsion fx. She has not been contacted by her surgeon since the MRI at this point. Subjective Subjective She reports pain currently 3/ 10, at worst 5/10. She presents with 3/4 tenderness to palpation in L lower leg and ankle. Pitting edema noted from L knee distally. Lymphedema Eval Classification of Lymphedema Secondary Lymphedema Yes Post-Surgical Lymphedema Yes Stemmer's sign Stemmer's Sign yes Stage of Lymphedema Lymphedema stages Stage II (Pitting edema, increased fibrosis w/ decreased pitting) Skin Changes Dry Skin Yes Redness Yes Other Changes Yes Pain Scale Pain Scale (0-10) 5 Affected Extremities Areas Affected by Lymphedema/Edema Left Lower Extremity Manual Lymphatic Drainage Treatment Area MLD Treatment Area Left Lower Extremity Wound Problems/Impairments Impairments Problems/Impairmments Palpation Tenderness,Impaired Range of Motion,Impaired Strength,Impaired Endurance, Impaired Gait Pattern,Impaired Walking,Impaired Standing, Impaired Recreational Activities,Increased Edema, Lymphedema Present,Subjective C/O Pain,Impaired Self Care/ Self Management Prognosis Rehab Potential Good
--- NOTE | 2022-02-09 11:37 | HMH.RHREAS ---
Rehab Reassessment Rehab OP Re-assessment Start: 02/09/22 11:27 Freq: Status: Active Protocol: Document 02/09/22 11:31 BOB (Rec: 02/09/22 11:37 BOB [id number]) Electronically Signed By David Castellanos, PT 02/09/22 11:31 Rehab Re-assessment Subjective Subjective Pt with less pain overall, 2/ 10 per her report. Objective Objective Notes Circumferential measurements: L LE total 251.6 cm. Continues to present with mild fibrotid and pitting edema to the L foot and ankle this date. Assessment Progress Assessment Progressing as Expected Assessment Notes Pt has shown significant improvement in edema to the L LE overall with decreased pitting and fibrotic edema. Pt has continued mild pain in the L LE and edema remains in the foot and ankle areas. She reports some palpation tenderness remains as well. Patient goals met ST,2,3,[address] LT,2,3,4,5,6,7 Revised Goals none Plan Plan Continue per initial POC. Frequency of Therapy 2 x/wk Duration of therapy 4 wks Time and Billing Re-Eval Time 15 Re-Eval Billing Units 1 PHYSICIAN CERTIFICATION: I certify the specified therapy services for Liliana Adams are required, authorized, and reviewed every 30 days.
== END 2022-03-07 11:05 | disposition home or self-care (01) ==
LOC: PT 11:00
PROVIDERS: PCP Internal Medicine; Visit Provider Orthopaedic Surgery
DX: M25.562 Pain in left knee (principal)
CPT/HCPCS: 97110; 97140; 97164; 97760

== ENCOUNTER → 2022-03-09 14:39 | Outpatient (CLI) | payer MEDICARE, OTHER, SELFPAY ==
--- NOTE | 2022-03-09 14:42 | XR_ITS ---
FINAL REPORT CLINICAL HISTORY: Left TKA COMPARISON: December 27, 2021 FINDINGS: LEFT KNEE Three views of the left knee were obtained. There are postoperative changes from knee arthroplasty. Visualized joint spaces are normally aligned. There is no joint effusion. Anterior soft tissue calcifications are ileum noted. There is no new acute abnormality. IMPRESSION: Postoperative change with no new acute abnormality. Reviewed, Interpreted and Dictated by Abisai Villanueva III, MD Transcribed by Robyn Reddy Authenticated and [facility][1]
== END ==
PROVIDERS: PCP Internal Medicine; Visit Provider Orthopaedic Surgery
DX: M25.562 Pain in left knee; Z96.652 Presence of left artificial knee joint
CPT/HCPCS: 73562

== ENCOUNTER → 2022-05-31 13:09 | Outpatient (CLI) | payer MEDICARE, OTHER, SELFPAY ==
--- NOTE | 2022-05-31 13:14 | XR_ITS ---
FINAL REPORT CLINICAL HISTORY: s/p total knee COMPARISON: 03/09/2022 FINDINGS: Left knee Three views were obtained. There is no acute fracture or dislocation. There are postoperative changes from knee arthroplasty. Soft tissue calcifications are stable since previous. IMPRESSION: Stable appearance of the knee. Reviewed, Interpreted and Dictated by Abisai Villanueva III, MD Transcribed by Latoya Schwarz Authenticated and [facility]
== END ==
PROVIDERS: PCP Internal Medicine; Visit Provider Physician Assistant Surgical
DX: M25.562 Pain in left knee; Z96.652 Presence of left artificial knee joint
CPT/HCPCS: 73562

== ENCOUNTER → 2022-08-10 12:49 | Outpatient (CLI) | payer MEDICARE, OTHER, SELFPAY ==
[2022-08-10 15:36] LABS: Basophils # 0.1 K/mm3 (0-0.2); Basophils % 1.1 % (0.1-2.0); Eosinophils # 0.3 K/mm3 (0.0-0.4); Eosinophils % 3.5 % (0.1-12.0); Hematocrit 41.9 % (37.0-47.0); Hemoglobin 13.5 g/dL (12.2-16.2); Lymphocytes # 2.2 K/mm3 (0.7-4.5); Lymphocytes % 24.7 % (10-50); Mean Corpuscular HGB Conc 32.3 g/dL (31.8-35.4); Mean Corpuscular Hemoglobin 29.5 pg (27.0-31.2); Mean Corpuscular Volume 91.3 fl (81-99); Monocytes # 0.6 K/mm3 (0.1-1.0); Monocytes % 6.4 % (1.7-9.3); Neutrophils # 5.6 K/mm3 (1.8-7.8); Neutrophils % 64.3 % (37.0-80.0); Platelet Count 432 K/mm3 (142-424); Red Blood Count 4.59 M/mm3 (4.20-5.40); Red Cell Distribution Width 15.1 % (11.5-17.5); White Blood Count 8.7 K/mm3 (4.8-10.8)
[2022-08-10 16:10] LABS: Alanine Aminotransferase 21 U/L (12-78); Albumin Level 4.1 g/dl (3.5-5.0); Albumin/Globulin Ratio 1.5 (1.1-1.8); Alkaline Phosphatase 115 U/L (38-126); Anion Gap 12.7 mEq/L (5-15); Aspartate Amino Transferase 22 U/L (14-36); Bilirubin,Total 0.6 mg/dl (0.2-1.3); Blood Urea Nitrogen 14 mg/dl (7-17); Calcium 9.4 mg/dl (8.4-10.2); Carbon Dioxide 27 mmol/L (22.0-30.0); Chloride 103 mmol/L (98-107); Chol/HDL Ratio 4.5 (1-3.5); Cholesterol 144 mg/dl (140-200); Estimated Glomerular Filt Rate 62 ml/min (>60); GFR (African American) 75 ML/MIN (>60); Globulin 2.8 g/dL (1.3-3.2); Glucose 143 mg/dl (74-100); HDL Cholesterol 32 mg/dl (40-60); Potassium 4.7 mmoL/L (3.5-5.1); Sodium 138 mmol/L (136-145); Total Protein,Serum 6.9 g/dl (6.3-8.2); Triglycerides 237 mg/dl (30-150); VLDL Cholesterol 47 mg/dL (0-40)
[2022-08-10 16:22] LABS: Direct LDL Cholesterol 74.54 mg/dL (100-129)
[2022-08-10 16:41] LABS: Thyroid Stimulating Hormone 1.68 uIU/mL (0.465-4.68)
[2022-08-11 11:18] LABS: Creatinine,Urine Random 73 mg/dL (Not Estab.); Microalbumin/Creatinine Ratio 52.8
[2022-08-12 17:28] LABS: Hemoglobin A1C 8.8 % (4.0-6.0)
== END ==
PROVIDERS: PCP Internal Medicine; Visit Provider Internal Medicine
DX: E11.9 Type 2 diabetes mellitus without complications (principal); E78.5 Hyperlipidemia, unspecified; I10 Essential (primary) hypertension; I89.0 Lymphedema, not elsewhere classified; R60.0 Localized edema; M17.12 Unilateral primary osteoarthritis, left knee; Z79.84 Long term (current) use of oral hypoglycemic drugs
CPT/HCPCS: 80053; 80061; 82043; 82570; 83036; 84443; 85025

== ENCOUNTER → 2022-08-11 09:34 | Outpatient (CLI) | payer MEDICARE, OTHER, SELFPAY ==
--- NOTE | 2022-08-11 09:39 | XR_ITS ---
FINAL REPORT CLINICAL HISTORY: s/p lt knee total arthroplasty FINDINGS: LEFT KNEE A three view exam demonstrates surgical changes of total left knee arthroplasty. The hardware has a normal appearance. No fracture is identified. There is a 2.3 cm calcification in the superior patellar region which may represent loose body. IMPRESSION: Surgical changes of total left knee arthroplasty without hardware complication. Reviewed, Interpreted and Dictated by Abisai Villanueva III, MD Transcribed by Mili Dominguez Authenticated and [facility]
== END ==
PROVIDERS: PCP Internal Medicine; Visit Provider Physician Assistant Surgical
DX: M25.562 Pain in left knee; Z96.652 Presence of left artificial knee joint
CPT/HCPCS: 73562

== ENCOUNTER → 2022-10-13 12:48 | Outpatient (CLI) | payer MEDICARE, OTHER, SELFPAY ==
--- NOTE | 2022-10-13 12:57 | XR_ITS ---
FINAL REPORT CLINICAL HISTORY: s/p lt TKA COMPARISON: 08/11/2022 FINDINGS: LEFT KNEE 3 views of the left knee were obtained. There is total knee prosthesis. There is no acute fracture or dislocation. Visualized joint spaces are normally aligned. There is a calcification in the projection of the quadriceps tendon. On the AP view, the calcification is curvilinear and measures approximately 5 cm in length. IMPRESSION: Total knee prosthesis. Calcified quadriceps tendon, possibly related to prior avulsion injury. Reviewed, Interpreted and Dictated by Shahbaz Lewis MD Transcribed by Robyn Reddy Authenticated and [facility]
== END ==
PROVIDERS: PCP Internal Medicine; Visit Provider Physician Assistant Surgical
DX: M25.562 Pain in left knee; Z96.652 Presence of left artificial knee joint
CPT/HCPCS: 73562

== ENCOUNTER → 2022-11-07 12:50 | Outpatient (CLI) | payer MEDICARE, OTHER, SELFPAY ==
[2022-11-07 15:09] LABS: Hemoglobin A1C 7.3 % (4.0-6.0)
== END ==
PROVIDERS: PCP Internal Medicine; Visit Provider Internal Medicine
DX: E11.9 Type 2 diabetes mellitus without complications (principal); I10 Essential (primary) hypertension; Z79.84 Long term (current) use of oral hypoglycemic drugs
CPT/HCPCS: 83036

== ENCOUNTER → 2023-02-08 14:44 | Outpatient (CLI) | payer MEDICARE, OTHER, SELFPAY ==
[2023-02-08 16:08] LABS: Alanine Aminotransferase 25 U/L (12-78); Albumin Level 4.2 g/dl (3.5-5.0); Albumin/Globulin Ratio 1.5 (1.1-1.8); Alkaline Phosphatase 118 U/L (38-126); Anion Gap 15.6 mEq/L (5-15); Aspartate Amino Transferase 25 U/L (14-36); Bilirubin,Total 0.4 mg/dl (0.2-1.3); Blood Urea Nitrogen 14 mg/dl (7-17); Calcium 9.1 mg/dl (8.4-10.2); Carbon Dioxide 30 mmol/L (22.0-30.0); Chloride 101 mmol/L (98-107); Chol/HDL Ratio 4.1 (1-3.5); Cholesterol 116 mg/dl (140-200); Estimated Glomerular Filt Rate 71 ml/min (>60); GFR (African American) 86 ML/MIN (>60); Globulin 2.8 g/dL (1.3-3.2); Glucose 115 mg/dl (74-100); HDL Cholesterol 28 mg/dl (40-60); Potassium 4.6 mmoL/L (3.5-5.1); Sodium 142 mmol/L (136-145); Triglycerides 175 mg/dl (30-150); VLDL Cholesterol 35 mg/dL (0-40)
[2023-02-08 16:14] LABS: Microalbumin/Creatinine Ratio 39.4
[2023-02-08 16:16] LABS: Creatinine,Urine Random 121 mg/dL (Not Estab.)
[2023-02-08 17:35] LABS: Direct LDL Cholesterol 64.95 mg/dL (100-129)
== END ==
PROVIDERS: PCP Internal Medicine; Visit Provider Internal Medicine
DX: E11.9 Type 2 diabetes mellitus without complications (principal); I10 Essential (primary) hypertension; E78.5 Hyperlipidemia, unspecified; M17.0 Bilateral primary osteoarthritis of knee
CPT/HCPCS: 80053; 80061; 82043; 82570

== ENCOUNTER → 2023-03-28 15:23 | Outpatient (CLI) | payer MEDICARE, OTHER, SELFPAY ==
--- NOTE | 2023-03-28 15:28 | XR_ITS ---
FINAL REPORT CLINICAL HISTORY: /INJURY. fell on 03/25/23. pain and swelling FINDINGS: Left ankle Three views were obtained. There is a comminuted, nondisplaced fracture of the distal fibula at the level of the lateral malleolus. There is moderate soft tissue swelling. Small plantar spur is identified. IMPRESSION: Fracture as above. Reviewed, Interpreted and Dictated by Shahbaz Lewis MD Transcribed by Latoya Schwarz Authenticated and [facility]
--- NOTE | 2023-03-28 15:29 | XR_ITS ---
FINAL REPORT CLINICAL HISTORY: INJURY. fell on 03/25/23. pain and swelling FINDINGS: Left foot Three views were obtained. There is no acute fracture or dislocation. The joint spaces appear normal. There is a small plantar spur. Mild soft tissue swelling is seen over the dorsum of the foot. IMPRESSION: No acute process. Reviewed, Interpreted and Dictated by Shahbaz Lewis MD Transcribed by Ltaoya Schwarz Authenticated and [facility]
== END ==
PROVIDERS: PCP Internal Medicine; Visit Provider Internal Medicine
DX: M25.572 Pain in left ankle and joints of left foot (principal); M79.672 Pain in left foot
CPT/HCPCS: 73610; 73630

== ENCOUNTER 2023-03-30 10:39 | Outpatient (RCR) | payer MEDICARE, OTHER, SELFPAY | END 2023-03-30 11:30 | disposition home or self-care (01) | LOC: PT 10:39 | PROVIDERS: Visit Provider Orthopaedic Surgery | DX: S82.202A Unspecified fracture of shaft of left tibia, initial encounter for closed fracture (principal) | CPT/HCPCS: 97760 ==

== ENCOUNTER → 2023-04-27 09:17 | Outpatient (CLI) | payer MEDICARE, OTHER, SELFPAY ==
--- NOTE | 2023-04-27 09:22 | XR_ITS ---
FINAL REPORT CLINICAL HISTORY: left ankle fx COMPARISON: 03/28/2023 FINDINGS: LEFT ANKLE Three views demonstrate an oblique, nondisplaced fracture of the lateral malleolus which is subacute. Alignment is stable. There is partially improved soft tissue swelling. IMPRESSION: Subacute, oblique fracture of the lateral malleolus with stable alignment. Reviewed, Interpreted and Dictated by Abisai Villanueva III, MD Transcribed by Ledy Landry Authenticated and [facility]
== END ==
PROVIDERS: PCP Internal Medicine; Visit Provider Orthopaedic Surgery
DX: S82.892A Other fracture of left lower leg, initial encounter for closed fracture (principal)
CPT/HCPCS: 73610

== ENCOUNTER 2023-05-20 12:53 | Emergency (ER) | payer MEDICARE, OTHER, SELFPAY ==
[2023-05-20 13:15] VITALS: BP 132/96; PULSE 95; RESP 20; TEMP 37.3; O2SAT 96; BMI 36.6
--- NOTE | 2023-05-20 13:34 | EXP.UTC ---
Discharge Plan Disposition Patient Disposition: Home, Self-Care Condition: Good Prescriptions Prescriptions: New acyclovir 800 mg tablet 800 mg PO 5XDAY 7 Days Qty: 35 0RF Rx Instructions: while awake; give 5 doses in 24 hours No Action hydrocodone-acetaminophen 5-325 mg tablet 1 - 2 tab PO Q4HP PRN (Reason: Moderate To Severe Pain) Qty: 60 0RF albuterol sulfate [ProAir HFA] 90 mcg/actuation HFA aerosol inhaler 2 puff IH Q4HP PRN (Reason: Shortness Of Breath) atorvastatin 80 mg tablet 80 mg PO HS Patient Comments: TAKE ONE TABLET BY MOUTH EVERY DAY metformin 1,000 mg tablet 1,000 mg PO DAILY lisinopril-hydrochlorothiazide 1 EACH tablet 1 tab PO DAILY igighwiscolf-inkj-hvbeo acid 1 EACH tablet 1 each PO DAILY bisoprolol fumarate 5 MG tablet 5 mg PO DAILY Patient Comments: TAKE ONE TABLET BY MOUTH EVERY DAY bupropion HCl 150 MG tablet extended release 24 hr 150 mg PO DAILY celecoxib 200 MG capsule 200 mg PO DAILYP PRN (Reason: ARTHRITIS) furosemide 40 MG tablet 40 mg PO DAILYP PRN (Reason: Edema) citalopram 40 MG tablet 40 mg PO DAILY aspirin 325 MG tablet 325 mg PO DAILY Qty: 14 0RF docusate sodium 100 MG capsule 100 mg PO BIDP PRN (Reason: Constipation) Qty: 20 0RF Referrals Follow up/Referrals: Benji Walton MD [Primary Care Provider] - See instructions Activity Restrictions/Add. Instructions Additional Instructions/Restrictions: Take medication as prescribed Calamine lotion may help with itching and burning Follow up with your Family Doctor Return if needed Straight to ER if any life threatening symptoms Benadryl may help with itching Over the counter Lidocaine patches may help with pain Clinical Impressions Clinical Impression: Shingles Qualifiers: Herpes zoster complications: without complications Qualified Code(s): B02.9 - Zoster without complications Instructions Patient Instructions: DI for Shingles, Shingles, Acyclovir Discharge ED Provider: Peri Scott [facility] General Stated complaint: RED PAINFUL SPOTS ALL OVER BACK Mode of Arrival: Ambulatory Source of Information: Patient Limitations: No Limitations Time Seen by Provider: 05/20/23 13:34 Description of Symptoms (Recalled from Triage Doc. by RN): PATIENT C/O PAINFUL SORES TO LEFT BREAST AND SHOULDER THAT STARTED YESTERDAY HEENT Symptoms (Recalled from RN notes): No Resp Symptoms (Recalled from RN notes): No Skin Symptoms (Recalled from RN notes): Yes MS Symptoms (Recalled from RN notes): No Functional Status (Recalled from RN notes): WNL History of Present Illness Provider Complaint: Patient states that she thinks she may have shingles States that the skin under her left breast to her left shoulder area has been sore and she noticed last night she had a rash breaking out that looks like blisters and thinks she has shingles Related Data Home Medications Medication Instructions Recorded Confirmed albuterol sulfate 90 mcg/actuation 2 puff inhalation Q4HP PRN 08/17/17 04/27/23 aerosol inhaler (ProAir HFA) Shortness Of Breath lisinopril 20 1 tab PO DAILY Hypertension 08/31/17 04/27/23 mg-hydrochlorothiazide 12.5 mg tablet multivitamin-ferrous 1 each PO DAILY Supplement 11/06/17 04/27/23 fumarate-folic acid 18 mg-400 mcg tablet atorvastatin 80 mg tablet 80 mg PO HS Cholesterol 04/07/20 04/27/23 bisoprolol fumarate 5 mg tablet 5 mg PO DAILY High blood pressure 10/14/21 04/27/23 bupropion HCl 150 mg 24 hr tablet, 150 mg PO DAILY Depression 10/14/21 04/27/23 extended release celecoxib 200 mg capsule 200 mg PO DAILYP PRN ARTHRITIS 11/02/21 04/27/23 citalopram 40 mg tablet 40 mg PO DAILY MOOD 11/02/21 04/27/23 furosemide 40 mg tablet 40 mg PO DAILYP PRN Edema 11/02/21 04/27/23 metformin 1,000 mg tablet 1,000 mg PO DAILY 12/28/21 04/27/23 Previous Rx's Medication Instructions Recorded aspirin 325 mg tablet 32
[2023-05-20 13:40] VITALS: BP 132/96; PULSE 95; RESP 20; TEMP 37.3; O2SAT 96
== END 2023-05-20 13:46 | disposition home or self-care (01) ==
PROVIDERS: Emergency Provider Nurse Practitioner; PCP Internal Medicine
DX: B02.9 Zoster without complications (principal); F17.210 Nicotine dependence, cigarettes, uncomplicated; J45.909 Unspecified asthma, uncomplicated; E11.9 Type 2 diabetes mellitus without complications; E78.5 Hyperlipidemia, unspecified; I10 Essential (primary) hypertension; Z79.84 Long term (current) use of oral hypoglycemic drugs
CPT/HCPCS: 99204; 99212; G0463

== ENCOUNTER → 2023-06-15 13:27 | Outpatient (CLI) | payer MEDICARE, OTHER, SELFPAY ==
--- NOTE | 2023-06-15 13:57 | XR_ITS ---
FINAL REPORT CLINICAL HISTORY: left ankle fx COMPARISON: 04/27/2023 FINDINGS: LEFT ANKLE: Three views of the left ankle were obtained. There is a subacute oblique fracture of the lateral malleolus, which is stable since the prior examination of April. A small amount of callus formation is present. The joint spaces and mortise are intact. There is no soft tissue abnormality. A plantar calcaneal spur is present. IMPRESSION: Subacute oblique fracture of the lateral malleolus, stable. Reviewed, Interpreted and Dictated by Abisai Villanueva III, MD Transcribed by Sailaja Peacock Authenticated and [facility]
== END ==
PROVIDERS: PCP Internal Medicine; Visit Provider Orthopaedic Surgery
DX: S82.892A Other fracture of left lower leg, initial encounter for closed fracture (principal); M25.572 Pain in left ankle and joints of left foot
CPT/HCPCS: 73610

== ENCOUNTER 2024-12-11 15:15 | Outpatient (CLI) | payer MEDICARE, OTHER, SELFPAY ==
[2024-12-11 17:39] LABS: Basophils # 0.1 K/mm3 (0-0.2); Basophils % 0.7 % (0.1-2.0); Eosinophils # 0.4 Kmm3 (0.0-0.4); Eosinophils % 5.1 % (0.1-12.0); Hematocrit 40.4 % (37.0-47.0); Hemoglobin 12.9 g/dL (12.2-16.2); Immature Granulocytes # 0.05 10^3uL; Immature Granulocytes % 0.6 %; Lymphocytes # 2.4 K/mm3 (0.7-4.5); Lymphocytes % 28.6 % (10-50); Mean Corpuscular HGB Conc 31.9 g/dL (31.8-35.4); Mean Corpuscular Hemoglobin 29.9 pg (27.0-31.2); Mean Corpuscular Volume 93.7 fl (81-99); Mean Platelet Volume 9.7 fl (7.4-10.4); Monocytes # 0.6 K/mm3 (0.1-1.0); Monocytes % 7.6 % (1.7-9.3); Neutrophils # 4.8 K/mm3 (1.8-7.8); Neutrophils % 57.4 % (37.0-80.0); Nucleated Red Blood Cells # 0 10^3/uL; Nucleated Red Blood Cells % 0 %; Platelet Count 338 K/mm3 (142-424); Red Blood Count 4.31 M/mm3 (4.20-5.40); Red Cell Distribution Width 13.7 % (11.5-17.5); Red Cell Distribution Width-SD 46.9 fL; White Blood Count 8.4 K/mm3 (4.8-10.8)
[2024-12-11 18:11] LABS: Alanine Aminotransferase 21 U/L (12-78); Albumin Level 4.2 g/dl (3.5-5.0); Albumin/Globulin Ratio 1.6 (1.1-1.8); Alkaline Phosphatase 89 U/L (38-126); Anion Gap 13.5 mEq/L (5-15); Aspartate Amino Transferase 22 U/L (14-36); Bilirubin,Total 0.8 mg/dl (0.2-1.3); Blood Urea Nitrogen 17 mg/dl (7-17); Calcium 9.5 mg/dl (8.4-10.2); Carbon Dioxide 30 mmol/L (22.0-30.0); Chloride 101 mmol/L (98-107); Estimated Glomerular Filt Rate 62 ml/min (>60); GFR (African American) 75 ML/MIN (>60); Globulin 2.6 g/dL (1.3-3.2); Glucose 74 mg/dl (74-100); Potassium 4.5 mmoL/L (3.5-5.1); Sodium 140 mmol/L (136-145); Total Protein,Serum 6.8 g/dl (6.3-8.2)
[2024-12-11 18:21] LABS: Microalbumin/Creatinine Ratio 52.6
[2024-12-11 18:22] LABS: Creatinine,Urine Random 98 mg/dL (Not Estab.)
== END 2024-12-11 23:59 | disposition home or self-care (01) ==
LOC: LAB.DROPOF 12-12 10:06
PROVIDERS: PCP Internal Medicine; Visit Provider Internal Medicine
DX: I10 Essential (primary) hypertension (principal); E11.42 Type 2 diabetes mellitus with diabetic polyneuropathy; E78.5 Hyperlipidemia, unspecified
CPT/HCPCS: 80053; 82043; 82570; 83036; 85025

== ENCOUNTER 2025-06-26 11:50 | Outpatient (CLI) | payer MEDICARE, OTHER, SELFPAY ==
[2025-06-26 15:11] LABS: Alanine Aminotransferase 20 U/L (12-78); Albumin Level 4.3 g/dl (3.5-5.0); Albumin/Globulin Ratio 1.6 (1.1-1.8); Alkaline Phosphatase 99 U/L (38-126); Anion Gap 13.9 mEq/L (5-15); Aspartate Amino Transferase 22 U/L (14-36); Bilirubin,Total 0.9 mg/dl (0.2-1.3); Blood Urea Nitrogen 10 mg/dl (7-17); Calcium 9.6 mg/dl (8.4-10.2); Carbon Dioxide 31 mmol/L (22.0-30.0); Chloride 98 mmol/L (98-107); Cholesterol 155 mg/dl (140-200); Creatinine,Serum 0.80 mg/dl (0.52-1.04); Estimated Glomerular Filt Rate 71 ml/min (>60); GFR (African American) 85 ML/MIN (>60); Globulin 2.7 g/dL (1.3-3.2); Glucose 162 mg/dl (74-100); HDL Cholesterol 43 mg/dl (40-60); Potassium 4.9 mmoL/L (3.5-5.1); Sodium 138 mmol/L (136-145); Total Protein,Serum 7.0 g/dl (6.3-8.2); Triglycerides 201 mg/dl (30-150)
[2025-06-26 16:01] LABS: Vitamin B12 372 pg/mL (239-931)
[2025-06-26 16:18] LABS: Hemoglobin A1C 7.3 % (4.0-6.0)
--- OUTSIDE RECORDS SUMMARY | 2025-06-27 10:25 | XMS_ITS | Clinical Summary ---
Author Organization [facility] Address [address] [place] [address] Care Team Providers Care Sr. Payroll Manager Name Role Phone Benji Walton MD Primary Care Provider [phone] Social History Tobacco Use Types Packs/Day Years Used Date Smoking Tobacco: Never Assessed Comments Unknown Sex and Gender Information Value Date Recorded Sex Assigned at Not on file Legal Sex Female 7:52 PM EDT Gender Identity Not on file Sexual Orientation Not on file Plan of Treatment Health Maintenance Due Date Last Done Comments [facility]-Bone Density Scan 1953 [facility]-Depression Screening 1953 [facility]-Infant/Child/Adol SDOH Screenings 1955 [facility]- SDOH Screenings 1971 [facility]-Adult SDOH Screenings 1971 [facility]-DTaP,Tdap,and Td Vaccine s (1 - Tdap) 01/15/1972 CT Colonography 1998 Colonoscopy 1998 FIT-DNA 1998 FIT 1998 FOBT 1998 Sigmoidoscopy 1998 [facility]-Colorectal Cancer Screening 1998 [facility]-Pneumococcal Vaccine: 50 + Years (1 of 1 - PCV) 2003 [facility]-Zoster Vaccines (1 of 2) 2003 [id number] Vaccine (3 - season) 2025 01/27/2021, 01/06/2021 [facility]-Influenza Vaccine (#1) 2025 [facility]-RSV Vaccine: 60+ Years o r (1 - 1-dose 75+ series) 01/15/2028 HPV Vaccines (No Doses Required) Completed [facility]-HIB Vaccines Aged Out No longer e ligible based on patient's age to complete this topic [facility]-Hepatitis A Vaccines Aged Out No longer eligible based on patient's age to complete this topic [facility]-IPV Vaccines Aged Out No longer e ligible based on patient's age to complete this topic [facility]-Rotavirus Vaccines Aged Out No lo nger eligible based on patient's age to complete this topic Insurance MEDICARE Member Subscriber Plan / Payer (Ef fective 2018-Present) Name:Liliana Adams Member ID:[id number] Relation to Subscriber:Self Name:Liliana Adams Subscriber ID:[id number] Payer ID:MEDICARE Group ID:Not on file Type:Medicare Address: [address] Care Teams Sr. Payroll Manager Relationship Specialty Start Date End Date Benji Walton MD [address] [facility] [address] [place] [phone] PCP - General 11/20/20
== END 2025-06-26 23:59 | disposition home or self-care (01) ==
LOC: LAB.DROPOF 06-27 10:23
PROVIDERS: PCP Internal Medicine; Visit Provider Internal Medicine
DX: E78.5 Hyperlipidemia, unspecified (principal); E11.42 Type 2 diabetes mellitus with diabetic polyneuropathy; I10 Essential (primary) hypertension; E53.8 Deficiency of other specified B group vitamins
CPT/HCPCS: 80053; 80061; 82607; 83036

== ENCOUNTER 2025-07-02 10:17 | Emergency (ER) | payer MEDICARE, OTHER, SELFPAY ==
--- NOTE | 2025-07-02 10:25 | XR_ITS ---
FINAL REPORT CLINICAL HISTORY: short of breath heart feels funny, like it has an extra beat COMPARISON: None FINDINGS: A single frontal view of the chest was obtained. There is minimal atelectasis or scarring in the left perihilar region. Lungs are otherwise clear. No edema. There is no evidence of effusion or pneumothorax. Mediastinum is unremarkable. Heart size is normal. IMPRESSION: Minimal atelectasis or scarring left perihilar region. Reviewed, Interpreted and Dictated by Hill Garcia MD Transcribed by Mili Dominguez Authenticated and [facility]
[2025-07-02 10:26] VITALS: BP 130/66; PULSE 84; RESP 18; TEMP 37.1; O2SAT 95; BMI 36.3
--- NOTE | 2025-07-02 10:26 | ECG_ITS ---
APPROVED REPORT Exam: Resting ECG HR:76 bpm ECG Measurements Heart Rate 76 AXES AZ 159 P 72 QRSd 93 QRS 69 QT 399 T 82 QTc 429 Conclusion SINUS RHYTHM NONSPECIFIC T-WAVE ABNORMALITY BORDERLINE ECG UNCONFIRMED REPORT Normal sinus rhythm. No STEMI Electronically signed by : JAMES MUNOZ, 07/02/2025 16:00:01
--- OUTSIDE RECORDS SUMMARY | 2025-07-02 10:29 | XMS_ITS | Clinical Summary ---
Author Organization [facility] Address [address] [place] [address] Care Team Providers Care Voice Coach Name Role Phone Benji Walton MD Primary Care Provider [phone] Social History Tobacco Use Types Packs/Day Years [...] 2003 [facility]-Zoster Vaccines (1 of 2) 2003 [id number] Vaccine (3 - season) 2025 01/27/2021, 01/06/2021 [...] Payer (Ef fective 2018-Present) Name:Liliana Adams Member ID:[id number] Relation to Subscriber:Self Name:Liliana Adams Subscriber ID:[id number] Payer ID:MEDICARE Group ID:Not on file Type:Medicare Address: [address] Care Teams Voice Coach Relationship Specialty Start Date End Date Benji Walton MD [address] [facility] [address] [place] [id number] PCP - General 11/20/20
--- NOTE | 2025-07-02 10:32 | PC.NURSE ---
FSBS 197 at this time
--- NOTE | 2025-07-02 11:17 | ED_ITS ---
<Statement entered by Philip Mccartney MD - 07/02/25 15:17> Philip Mccartney MD: I was consulted by the TAISHA, and we discussed the complexity of the problems being addressed. I approve the treatment and management plan for this patient's care in the emergency department, thus performing a substantive portion of the medical decision making. Discharge Plan Disposition Chief Complaint: Arrhythmia/Palpitations Prescriptions Prescriptions: No Action omeprazole magnesium [Prilosec OTC] 20 mg tablet,delayed release (DR/EC) 20 mg PO DAILY Centrum Silver Women 8 mg iron-400 mcg-50 mcg tablet 1 tab PO DAILY atorvastatin 80 mg tablet See Rx Instructions .ROUTE .COMPLEX Qty: 90 1RF Dose Instruction: TAKE ONE TABLET BY MOUTH EVERY DAY AT BEDTIME Rx Instructions: TAKE ONE TABLET BY MOUTH EVERY DAY AT BEDTIME metformin 1,000 mg tablet See Rx Instructions .ROUTE .COMPLEX Qty: 180 1RF Dose Instruction: TAKE ONE TABLET BY MOUTH TWICE DAILY Rx Instructions: TAKE ONE TABLET BY MOUTH TWICE DAILY bupropion HCl 150 mg tablet sustained-release 12 hr See Rx Instructions .ROUTE .COMPLEX Qty: 90 1RF Dose Instruction: TAKE ONE TABLET BY MOUTH EVERY DAY IN THE MORNING Rx Instructions: TAKE ONE TABLET BY MOUTH EVERY DAY IN THE MORNING bisoprolol fumarate 5 mg tablet See Rx Instructions .ROUTE .COMPLEX Qty: 90 1RF Dose Instruction: TAKE ONE TABLET BY MOUTH EVERY DAY Rx Instructions: TAKE ONE TABLET BY MOUTH EVERY DAY lisinopril-hydrochlorothiazide 20-12.5 mg tablet See Rx Instructions .ROUTE .COMPLEX Qty: 90 1RF Dose Instruction: TAKE ONE TABLET BY MOUTH EVERY DAY Rx Instructions: TAKE ONE TABLET BY MOUTH EVERY DAY albuterol sulfate 90 mcg/actuation HFA aerosol inhaler See Rx Instructions .ROUTE .COMPLEX Qty: 8.5 5RF Dose Instruction: INHALE 2 puffs BY MOUTH EVERY 4 HOURS NEEDED FOR asthma --SHAKE WELL BEFORE USE-- Rx Instructions: INHALE 2 puffs BY MOUTH EVERY 4 HOURS NEEDED FOR asthma --SHAKE WELL BEFORE USE-- citalopram 40 mg tablet 40 mg PO DAILY Qty: 90 1RF Plenvu 140-9-5.2 gram powder in packet, sequential 500 ml PO .COMPLEX Qty: 3 0RF Rx Instructions: 500 mL orally; 6 pm evening before take first dose followed by 16 oz of water following instructions on kit. morning of exam take the second dosage followed by 16 oz of water . Referrals Follow up/Referrals: Benji Walton MD [Primary Care Provider, Medical] - See instructions Print Language Print Language: [place] Citizen Discharge ED Provider: Philip Mccartney General Adult HPI General Chief complaint: Arrhythmia/Palpitations Stated complaint: heart palpitations fuzzy-headed Time Seen by Provider: 07/02/25 10:20 Mode of Arrival: Ambulatory Source of Information: Patient Description of Symptoms (Recalled from ER Triage Doc. by RN): PATIENT PRESENTS TO ED FOR PALPITATIONS OR LIKE HER HEART IS HAVING AN EXTRA BEAT SINCE THIS PAST MONDAY. PT DENIES ANY PAIN OR SOA. History of Present Illness HPI narrative: 70-year-old female presents to the ED for complaint of palpitations. She says it is like her heart has an extra beat. She says this started this past Monday. She has no other pain. No shortness of breath. Chest pain no other signs or symptoms. She takes medications for her high blood pressure, cholesterol, diabetes and an antidepressant. Related Data Home Medications ?Medication ?Instructions ?Recorded ?Confirmed [id number] 8 mg-folic 400 1 tab PO DAILY 04/2106/26/25 mcg-K 50 mcg-lutein 300 mcg tablet (Centrum Silver Women) omeprazole magnesium 20 mg 20 mg PO DAILY 04/21/25 tablet,delayed release (Prilosec OTC) Previous Rx's ?Medication ?Instructions ?Recorded atorvastatin 80 mg tablet See Rx Instructions .Route 0 02/07/25 .COMPLEX #90 tabs metformin 1,000 mg tablet See Rx Instructions .Route 0 02/12/25 .COMPLEX #180 tabs bupropion HCl 150 mg tablet,12 hr See Rx Instructions .Route 03/18/25 sustained-release .COMPLEX #90 tabs bisoprolol fumarate 5 mg tablet See Rx Instructions .R oute 03/19/25 .COMPLEX #90 tabs lisinopril 20 See Rx Instructions .Route 0 03/19/25 mg-hydrochlorothiazide 12.5 mg .COMPLEX #90 tabs tablet albuterol sulfate 90 mcg/actuation See Rx Instructions .Route 04/07/25 aerosol inhaler .COMPLEX #8.5 grams citalopram 40 mg tablet 40 mg PO DAILY #90 tabs 05/11 01/01 [id number] 140 gram-sod sulfate 9 500 ml PO .COMPLEX colo nscopy #3 ea 06/17/25 gram-NaCl 5.2gram-KCl-C oral pwdr packs (Plenvu) Allergies Allergy/AdvReac Type Severity Reaction Status Date / Time No Known Allergies Allergy Verified 04/21/25 15:12 [facility] Disclaimer: The information contained in this section may have been updated after the patient was seen, as this information can be updated by other users. Medical History Depression History of gastroesophageal reflux (GERD) Diabetes mellitus, type 2 Asthma Hyperlipidemia Hypertension Surgical History History of tonsillectomy History of hysterectomy Social History Smoking Status: Current every day smoker tobacco type: e-cigarettes second hand exposure: No alcohol intake: never substance use type: denies use current occupational status: retired Travel in the last 8 weeks?: None household members: spouse housing: house current occupational exposures/hazards: No caffeine: Yes Have you lived/traveled outside [place] in past 30 days?: No Contact w/someone who lives/traveled outside US past 30 days?: No Exposure to someone with infectious disease in past 14 days?: No Do you have a fever (greater than 100.4 F or 38 C)?: No Have you tested positive for COVID-19?: No Exposed to someone with COVID-19 in past 14 days?: No Do you have a sore throat?: No Do you have a cough?: No Do you have any weakness?: No Do you have any diarrhea?: No Are you experiencing any unusual bleeding?: No Do you have any muscle aches/pain?: No Do you have any abdominal pain?: No Are you experiencing loss of taste or smell?: No Other Medical History Have you received the Flu Vaccine for this season: No Have you received the Pneumonia Vaccine: No ROS Obtained: Yes Systems reviewed as appropriate & no additional complaints except as documented Constitutional Constitutional: Reports as per HPI Physical Exam General General appearance: alert and in no apparent distress Head Head exam: normocephalic Eye Eye exam: Present PERRL and EOMI ENT ENT exam: Present normal oropharynx and mucous membranes moist Neck Neck exam: Present full ROM and trachea midline Respiratory Respiratory exam: Present normal lung sounds bilaterally Cardiovascular Cardiovascular exam: Present regular rate, normal rhythm, normal heart sounds, +S1 and +S2 Abdominal Exam Abdominal exam: Present soft and normal bowel sounds Extremities Exam Extremities exam: Present normal inspection, full ROM and normal capillary refill Neurological Exam Neurological exam: Present alert and oriented X3 Skin Skin exam: Present warm and dry Medical Decision Making Medical Records Screening: Per USPSTF and CDC recommendations, given the prevalence of disease in our region, it is our hospital?s policy to screen for HIV and viral Hepatitis for all patients aged 18 and over and those with ongoing risk factors. [place] Inquiry Pt receiving controlled substance: No [place] was queried for this patient: No Vital Signs: 07/02/25 10:26 07/02/25 10:26 Temperature 98.7 F 98.7 F Temperature Source Oral Pulse Rate 84 Pulse Rate [Right] 84 Respiratory Rate 18 18 Blood Pressure 130/66 Blood Pressure [Right Arm] 130/66 Blood Pressure Mean [Right Arm] 87 02 Sat by Pulse Oximetry 95 95 Oxygen Delivery Method Room Air Lab Data Lab Results 07/02/25 11:10: WBC 6.9, RBC 4.06 L, Hgb 11.7 L, Hct 36.9 L, MCV 90.9, MCH 28.8, MCHC 31.7 L, RDW 13.8, Plt Count 331, MPV 9.4, Neut % (Auto) 58.3, Lymph % (Auto) 25.2, [place]aine % (Auto) 8.2, Eos % (Auto) 6.7, Baso % (Auto) 0.9, Neut # (Auto) 4.0, Lymph # (Auto) 1.7, [place] # (Auto) 0.6, Eos # (Auto) 0.5 H, Baso # (Auto) 0.1, Sodium 137, Potassium 4.1, Chloride 101, Carbon Dioxide 28, Anion Gap 12.1, BUN 13, Creatinine 1.00, Estimated Creat Clear 75, Estimated GFR 55 L, Est GFR ( Amer) 66, Glucose 168 H, Calcium 9.2, Magnesium 1.6, Total Bilirubin 0.5, AST 25, ALT 25, Alkaline Phosphatase 81, Troponin I < 0.01, Total Protein 6.9, Albumin 4.2, Globulin 2.7, Albumin/Globulin Ratio 1.6, Lipase 80 07/02/25 11:10 07/02/25 11:10 Orders (Tests/Meds): ED MEDICATIONS Discontinued Medications Generic Name Dose Route Start Last Admin Trade Name Amna PRN Reason Stop Dose Admin Aspirin 325 mg 07/02/25 10:25 07/02/25 11:20 Aspirin 325mg Tablet PO 07/02/25 10:26 325 mg ONCE ONE Administration ORDERS Category Date Time Status Chest XR -- portable [XR chest portable] Stat Exams 07/02/25 10:25 Completed CBC [Complete Blood Count Auto Diff] Stat Lab 07/02/25 11:10 Completed Comprehensive Metabolic Panel Stat Lab 07/02/25 11:10 Completed Lipase Stat Lab 07/02/25 11:10 Completed Magnesium Stat Lab 07/02/25 11:10 Completed Trop I [Troponin I] Stat Lab 07/02/25 11:10 Completed Troponin I Q3H Lab 07/02/25 13:30 Ordered Troponin I Q3H Lab 07/02/25 16:30 Ordered Medical Decision Narrative: patient is a 70-year-old female presenting to the emergency department for evaluation of palpitations. Patient is hemodynamically stable and nontoxic- appearing upon arrival, afebrile. Differential diagnosis includes ACS, CAD, MD, anxiety, among others. Workup will be conducted with hematologic labs, specific imaging. Initial inventions include crystalloid bolus. Initial workup reviewed by me hematologic labs are remarkable for normal white blood cell count at 6.9, hemoglobin 11.7 hematocrit 36.9, electrolytes were essentially normal potassium 4.1 BUN was 13 creatinine was 1, glucose was 168 magnesium was 1.6 troponin was less than 0.01. We did not repeat troponin as her pain started last Monday. Chest x-ray read by myself showed nothing acute. [facility] some scarring in left perihilar region. I discussed with patient that she needs to follow-up with cardiology for a possible Holter monitor. Maybe even a further workup. Patient is agreeable. Patient is safe for discharge home. Critical Care Critical Care Time Critical Care Time: No
[2025-07-02] MEDS: ASPIRIN 325MG TABLET 325 MG PO (11:20)
[2025-07-02 11:30] LABS: Hematocrit 36.9 % (37.0-47.0); Hemoglobin 11.7 g/dL (12.2-16.2); Immature Granulocytes % 0.7 %; Mean Corpuscular HGB Conc 31.7 g/dL (31.8-35.4); Mean Corpuscular Hemoglobin 28.8 pg (27.0-31.2); Mean Corpuscular Volume 90.9 fl (81-99); Nucleated Red Blood Cells % 0 %; Platelet Count 331 K/mm3 (142-424); Red Blood Count 4.06 M/mm3 (4.20-5.40); Red Cell Distribution Width-SD 45.5 fL; White Blood Count 6.9 K/mm3 (4.8-10.8)
[2025-07-02 11:35] LABS: Albumin Level 4.2 g/dl (3.5-5.0); Chloride 101 mmol/L (98-107); Potassium 4.1 mmoL/L (3.5-5.1); Sodium 137 mmol/L (136-145)
[2025-07-02 11:38] LABS: Alanine Aminotransferase 25 U/L (12-78); Albumin/Globulin Ratio 1.6 (1.1-1.8); Alkaline Phosphatase 81 U/L (38-126); Anion Gap 12.1 mEq/L (5-15); Aspartate Amino Transferase 25 U/L (14-36); Bilirubin,Total 0.5 mg/dl (0.2-1.3); Blood Urea Nitrogen 13 mg/dl (7-17); Calcium 9.2 mg/dl (8.4-10.2); Carbon Dioxide 28 mmol/L (22.0-30.0); Creatinine Clearance Estimated 75 mL/min (50-200); Creatinine,Serum 1.00 mg/dl (0.52-1.04); Estimated Glomerular Filt Rate 55 ml/min (>60); GFR (African American) 66 ML/MIN (>60); Globulin 2.7 g/dL (1.3-3.2); Glucose 168 mg/dl (74-100); Lipase 80 U/L (23-300); Total Protein,Serum 6.9 g/dl (6.3-8.2)
[2025-07-02 11:39] LABS: Magnesium 1.6 mg/dl (1.6-2.3)
[2025-07-02 11:56] LABS: Troponin I < 0.01 ng/ml (0.00-0.034)
[2025-07-02 12:35] VITALS: BP 135/59; PULSE 69; RESP 16; TEMP 36.9; O2SAT 96
== END 2025-07-02 12:46 | disposition home or self-care (01) ==
PROVIDERS: Nurse Practitioner; Emergency Provider Student in an Organized Health Care Education/Training Program; PCP Internal Medicine
DX: R00.2 Palpitations (principal); I10 Essential (primary) hypertension; E78.5 Hyperlipidemia, unspecified; E11.9 Type 2 diabetes mellitus without complications; F17.210 Nicotine dependence, cigarettes, uncomplicated; Z79.84 Long term (current) use of oral hypoglycemic drugs
CPT/HCPCS: 71045; 80053; 83690; 83735; 84484; 85025; 93005; 99284